=== PATIENT | female | born 1940 | race Caucasian/White ===

== ENCOUNTER → 2017-01-26 | Day surgery (SDC) | payer BC ==
[~2017-01-26] VITALS: Ht 160 cm; Wt 77.3 kg
[~2017-01-26] MED LIST: ACET325T96 PO; ADVIN50050 INH; ALBU1AER9 INH; GLUCOSAMINE PO; IBUP-103 PO; LOSA50TA6 PO; MOME50SP5; MULT-506 PO; OMEG10007 PO; POLYSOL OPL; PRLSR20 PO; SIMV20TA2 PO; gummy fiber PO
[2017-01-26 12:01] VITALS: Ht 160 cm; Wt 77.3 kg
[2017-01-26 12:16] VITALS: TEMP 36.8
--- NOTE | 2017-01-26 12:50 | Endo History and Physical ---
History & Physical Date of Service: Jan 26, 2017. Chief Complaint: HISTORY OF POLYPS Referring Physician: DR. GERMAIN History of Present Illness 76 yo CF who presents for colonoscopy secondary to history of polyps. Past Medical History Arthritis, Asthma, Reflux, High Cholesterol Past Surgical History Hx Cardiac Surgery: No Hx Internal Defibrillator: No Hx Pacemaker: No Hx Abdominal Surgery: No Hx of Implantable Prosthesis: No Hx Post-Op Nausea and Vomiting: No Hx Cancer Surgery: No Hx Thoracic Surgery: No Hx Orthopedic: Yes (RT FOOT SURGERY X4) Hx Urinary Tract Surgery: No Family History Colon CA, Polyp Social History Smoking Status: Never Smoker Hx Substance Use: No Hx Alcohol Use: Yes (QUIT ) Allergies Coded Allergies: Adhesives (Verified Allergy, Unknown, REDNESS, RASH, 01/26/17) Amoxicillin (Unverified Allergy, Unknown, PT UNSURE REACTION, 01/26/17) SON QUEEN RN PT HAS NO ALLERGY TO PCN. 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 DENTAL WORK (12/12/15) Clavulanic Acid (Unverified Allergy, Unknown, PT UNSURE REACTION, 01/26/17) Uncoded Allergies: Perfumes (Allergy, Unknown, SOB, 10/21/15) Current Medications Reported Home Medications Medications Dose Route/Sig Max Daily Dose Days Date Category Cozaar (Losartan Potassium) 50 Mg Tab 50 Mg PO QAM 01/14/17 Reported Advil (Ibuprofen) 200 Mg Tab 400 Mg PO BID 10/21/15 Reported Refresh (Polyvinyl Alcohol-Povidone (Op) 1 Juma Juma 1 Drop OPL QAM 10/21/15 Reported [Glucosamine] 2 Tab PO QAM 10/21/15 Reported Tylenol (Acetaminophen) 325 Mg Tab 650 Mg PO BID 10/21/15 Reported Proair Hfa (Albuterol) Aers 2 Puffs INH Q4H PRN 10/21/15 Reported [gummy fiber] 1 Tab PO QAM 07/18/14 Reported [place]-3 (Fish Oil) 1 Ea Cap 2 Tab PO QAM 07/18/14 Reported Zocor (Simvastatin) 20 Mg Tab 20 Mg PO QPM 06/24/14 Reported Prilosec (Omeprazole) 20 Mg Capcr 20 Mg PO QPM 06/24/14 Reported Nasonex (Mometasone Furoate) [place] 1 [place] NA BID 9/8/14 Reported Multivitamin (Multivitamins) Tab 2 Tab PO QAM 06/24/14 Reported Advair Diskus 500-50 Mcg/Dose (Fluticasone Prop/Salmeterol) 14 Puff/1 Inhaler Aerp 1 Puff INH BID 06/24/14 Reported Vital Signs Weight (Kilograms): 77.27 Height (Feet): 5 Height (Inches): 3 Date Time Temp Pulse Resp B/P Pulse Ox O2 Delivery O2 Flow Rate FiO2 01/26/17 12:16 36.8 90 20 168/97 95 Room Air Physical Exam General Appearance: WD/WN, no apparent distress Respiratory/Chest: Auscultation: breath sounds normal Cardiovascular: Heart Auscultation: RRR Abdomen: Bowel Sounds: normal Inspection & Palpation: soft, non-distended, no tenderness, guarding & rebound Assessment and Plan Assessment: 76 yo CF who presents for colonoscopy secondary to history of polyps. Plan: Proceed with colonoscopy.
--- NOTE | 2017-01-26 13:11 | Discharge Instructions ---
Endoscopy Patient Instructions Date / Procedure(s) Performed Jan 26, 2017. Colonoscopy Allergy Information Coded Allergies: Adhesives (Verified Allergy, Unknown, REDNESS, RASH, 01/26/17) Amoxicillin (Unverified Allergy, Unknown, PT UNSURE REACTION, 01/26/17) SON QUEEN RN PT HAS NO ALLERGY TO PCN. 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 DENTAL WORK (12/12/15) Clavulanic Acid (Unverified Allergy, Unknown, PT UNSURE REACTION, 01/26/17) Uncoded Allergies: Perfumes (Allergy, Unknown, SOB, 10/21/15) Discharge Date / Findings Jan 26, 2017. Colon polyp Diverticulosis Internal hemorrhoids Medication Instructions Stopped Medication(s): ONLY INHALERS AND BLOOD PRESSURE TODAY OK to resume all medications today as prescribed Reported Home Medications Medications Dose Route/Sig Max Daily Dose Days Date Category Cozaar (Losartan Potassium) 50 Mg Tab 50 Mg PO QAM 01/14/17 Reported Advil (Ibuprofen) 200 Mg Tab 400 Mg PO BID 10/21/15 Reported Refresh (Polyvinyl Alcohol-Povidone (Op) 1 Juma Juma 1 Drop OPL QAM 10/21/15 Reported [Glucosamine] 2 Tab PO QAM 10/21/15 Reported Tylenol (Acetaminophen) 325 Mg Tab 650 Mg PO BID 10/21/15 Reported Proair Hfa (Albuterol) Aers 2 Puffs INH Q4H PRN 10/21/15 Reported [gummy fiber] 1 Tab PO QAM 07/18/14 Reported [place]-3 (Fish Oil) 1 Ea Cap 2 Tab PO QAM 07/18/14 Reported Zocor (Simvastatin) 20 Mg Tab 20 Mg PO QPM 06/24/14 Reported Prilosec (Omeprazole) 20 Mg Capcr 20 Mg PO QPM 06/24/14 Reported Nasonex (Mometasone Furoate) [place] 1 [place]au NA BID 06/24/14 Reported Multivitamin (Multivitamins) Tab 2 Tab PO QAM 06/24/14 Reported Advair Diskus 500-50 Mcg/Dose (Fluticasone Prop/Salmeterol) 14 Puff/1 Inhaler Aerp 1 Puff INH BID 06/24/14 Reported Provider Instructions Activity Restrictions - No exercising or heavy lifting for 24 hours. - Do not drink alcohol the day of the procedure. - Do not drive a car or operate machinery until the day after the procedure. - Do not make any important decisions or sign important papers in 24 hours after the procedure. Following Day: - Return to full activity which may include returning to work/school. Diet Start your diet with liquids and light foods (jello, soup, juice, toast). Then eat your usual diet if not nauseated. Treatment For Common After Affects For mild abdominal pain, bloating, or excessive gas: - Rest - Eat lightly - Lie on right side Follow-Up Information Follow-up with DR. GERMAIN as scheduled Anesthesia Information What You Should Know You have had a procedure that required some medicine to reduce anxiety and discomfort. This treatment is called moderate sedation. After receiving the treatment, you may be sleepy, but you will be able to breathe on your own. The effects of the treatment may last for several hours. Follow these instructions along with Activity/Diet recommendations noted above: * Do NOT do anything where dizziness or clumsiness would be dangerous. * Rest quietly at home today, then you can be up and about tomorrow. * Have a responsible person stay with you the rest of today. * You may have had an I.V. today. If so, you may take the dressing off later today. Recommendations Call your doctor if: * Trouble breathing * Continuous vomiting for more than 24 hours * Temperature above 101 degrees * Severe abdominal pain or bloating * Pain not relieved by pain medicine ordered * There is increased drainage or redness from any incision * A large amount of rectal bleeding greater than 2-3 tablespoons. (If you had a polyp/s removed or have hemorrhoids, a small amount of blood - from the rectum is to be expected.) * You have any unanswered questions or concerns. IN THE EVENT OF A SERIOUS EMERGENCY, GO TO THE NEAREST EMERGENCY ROOM Your discharge instructions were prepared by provider Dave Cool. Patient Instructions Signature Page Sindy Persaud Patient (or Guardian) Signature/Date: I have read and understand the instructions given to me by my caregivers. Caregiver/RN/Doctor Signature/Date: The above-named patient and/or guardian has received patient instructions on this date. + Original Patient Signature Page (only) stays with chart. Please make copy for patient.
--- NOTE | 2017-01-26 13:15 | GI REPORT ---
Procedure Date: 01/26/2017 12:28 PM Procedure: Colonoscopy Indications: High risk colon cancer surveillance: Personal history of colonic polyps Medicines: Monitored Anesthesia Care Complications: No immediate complications. Estimated Blood Loss: Estimated blood loss: none. Procedure: Pre-Anesthesia Assessment: - Prior to the procedure, a History and Physical was performed, and patient medications and allergies were reviewed. The patient's tolerance of previous anesthesia was also reviewed. The risks and benefits of the procedure and the sedation options and risks were discussed with the patient. All questions were answered, and informed consent was obtained. Prior Anticoagulants: The patient has taken no previous anticoagulant or antiplatelet agents. ASA Grade Assessment: II - A patient with mild systemic disease. After reviewing the risks and benefits, the patient was deemed in satisfactory condition to undergo the procedure. After I obtained informed consent, the scope was passed under direct vision. Throughout the procedure, the patient's blood pressure, pulse, and oxygen saturations were monitored continuously. The scope was introduced through the anus and advanced to the terminal ileum. The colonoscopy was performed without difficulty. The patient tolerated the procedure well. The quality of the bowel preparation was good. The terminal ileum, ileocecal valve, appendiceal orifice, and rectum were photographed. Findings: A 5 mm polyp was found in the ascending colon. The polyp was sessile. The polyp was removed with a hot snare. Resection and retrieval were complete. Scattered small-mouthed diverticula were found in the entire colon. Non-bleeding internal hemorrhoids were found during retroflexion. The hemorrhoids were small. Impression: - One 5 mm polyp in the ascending colon, removed with a hot snare. Resected and retrieved. - Diverticulosis in the entire examined colon. - Non-bleeding internal hemorrhoids. Recommendation: - Resume previous diet. - Continue present medications. - Repeat colonoscopy for surveillance based on pathology results. - Return to primary care physician as previously scheduled. Dave Cool, 01/26/2017 1:14:39 PM This report has been signed electronically. Note Initiated On: 01/26/2017 12:28 PM I attest to the content of the Intraoperative Record and orders documented therein, exceptions below
[2017-01-26 13:47] VITALS: BP 165/67; PULSE 83; O2SAT 96
--- NOTE | 2017-01-26 14:55 | Anesthesiology Progress Note ---
Anesthesia Post Op Note Date & Time Jan 26, 2017 at 14:54 Vital Signs Pain Intensity: 0 Vital Signs Past 12 Hours Date Time Temp Pulse Resp B/P Pulse Ox O2 Delivery O2 Flow Rate FiO2 01/26/17 13:47 83 20 165/67 96 Room Air 01/26/17 13:33 83 20 174/88 96 Room Air 01/26/17 13:18 92 20 143/75 96 Room Air 01/26/17 12:16 36.8 90 20 168/97 95 Room Air Notes Mental Status: alert / awake / arousable, participated in evaluation Pt Amnestic to Procedure: Yes Nausea / Vomiting: adequately controlled Pain: adequately controlled Airway Patency, RR, SpO2: stable & adequate BP & HR: stable & adequate Hydration State: stable & adequate Anesthetic Complications: no major complications apparent
== END | disposition home or self-care (01) ==
LOC: C.GI 11:47
PROVIDERS: ATTEND Internal Medicine
DX: Z12.11 Encounter for screening for malignant neoplasm of colon (principal); D12.2 Benign neoplasm of ascending colon; K57.30 Diverticulosis of large intestine without perforation or abscess without bleeding; K64.8 Other hemorrhoids; M19.90 Unspecified osteoarthritis, unspecified site; J45.909 Unspecified asthma, uncomplicated; K21.9 Gastro-esophageal reflux disease without esophagitis; E78.00 Pure hypercholesterolemia, unspecified; Z86.010 Personal history of colon polyps; Z87.891 Personal history of nicotine dependence; Z80.0 Family history of malignant neoplasm of digestive organs

== ENCOUNTER → 2017-02-14 | Outpatient (CLI) | payer BC ==
[2017-02-14 09:42] LABS: BASO % 1.4 %; BASO ABS # 0.09 K/uL (0-0.2); COMPLETE YES; EOS % 20.8 %; IG% 0.3 %; LYMPH % 30.5 %; LYMPH ABS # 2.01 K/uL (1.2-3.4); MEAN CELL VOLUME 90.3 fL (80-100); MEAN CORPUSCULAR HEMOGLOBIN 29.5 pg (25-34); MEAN CORPUSCULAR HGB CONC 32.6 g/dl (32-36); MEAN PLATELET VOLUME 9.6 fL (7.4-10.4); MONO % 8.3 %; NEUT % 38.7 %; PLATELET COUNT 236 K/uL (130-400); RED BLOOD COUNT 4.65 M/uL (4.2-5.4); WHITE BLOOD COUNT 6.59 K/uL (4.8-10.8)
[2017-02-14 09:56] LABS: ALT/SGPT 32 U/L (12-78); AST/SGOT 22 U/L (15-37); BLOOD UREA NITROGEN 16 mg/dl (7-18); BUN/CREATININE RATIO 21.7 (10-20); CARBON DIOXIDE 27 mmol/L (21-32); CHLORIDE 108 mmol/L (98-107); CREATININE 0.74 mg/dl (0.60-1.20); GLUCOSE 92 mg/dl (70-99); POTASSIUM 4.2 mmol/L (3.5-5.1); SODIUM 142 mmol/L (136-145)
[2017-02-14 10:02] LABS: ESTIMATED AVERAGE GLUCOSE 117 mg/dl; HA1C FLAG Normal (Normal)
[2017-02-14 10:07] LABS: ALB/GLOB RATIO 1.3 (0.9-2); ALKALINE PHOSPHATASE 110 U/L (45-117); CHOLESTEROL 169 mg/dl (0-200); HDL CHOLESTEROL 85 mg/dl; LDL CHOLESTEROL CALCULATED 68 mg/dl; TRIGLYCERIDES 78 mg/dl (0-150); VERY LOW DENSITY LIPOPROT CALC 16 mg/dl
== END | disposition home or self-care (01) ==
LOC: C.LAB1850 08:24
PROVIDERS: ATTEND Internal Medicine Pulmonary Disease
DX: E78.5 Hyperlipidemia, unspecified (principal); R73.9 Hyperglycemia, unspecified; I10 Essential (primary) hypertension

== ENCOUNTER → 2017-10-13 | Outpatient (CLI) | payer BC ==
--- NOTE | 2017-10-13 13:46 | MAMMOGRAPHY REPORT ---
BILATERAL DIGITAL SCREENING MAMMOGRAM WITH CAD: 10/13/2017 CLINICAL HISTORY: Routine screening. The patient has no current complaints. TECHNIQUE: Current study was also evaluated with a Computer Aided Detection (CAD) system. Bilateral CC and MLO views were obtained. COMPARISON: Comparison is made to exams dated: 10/12/2016 mammogram, 10/08/2015 mammogram, 07/15/2015 ultrasound, 10/07/2014 mammogram, 10/04/2013 mammogram, and 10/03/2012 mammogram - [facility]. BREAST COMPOSITION: The tissue of both breasts is almost entirely fatty. FINDINGS: No suspicious masses, calcifications, or areas of architectural distortion are noted in ei ther breast. There has been no significant interval change compared to prior exams. Bilateral benign -appearing calcifications are not significantly changed. IMPRESSION: ACR BI-RADS CATEGORY 2: BENIGN There is no mammographic evidence of malignancy. A 1 year screening mammogram is recommended. The pa tient will receive written notification of the results. Approximately 10% of breast cancers are not detected with mammography. A negative mammographic report should not delay biopsy if a clinically suggestive mass is present. Breanna Johnson M.D. /:10/13/2017 12:17:59 Floor Installer: Sis DAVALOS(Jesus)(Delaney), [facility] letter sent: Normal 1/2 BI-RADS Code: ACR BI-RADS Category 2: Benign
== END | disposition home or self-care (01) ==
LOC: C.MAMM 10:00
PROVIDERS: ATTEND Internal Medicine Pulmonary Disease
DX: Z12.31 Encounter for screening mammogram for malignant neoplasm of breast (principal)

== ENCOUNTER → 2018-02-06 | Outpatient (CLI) | payer BC ==
[~2018-02-06] MED LIST changes: +ACET-1693 PO; -ACET325T96 PO
[2018-02-06 09:39] LABS: BASO % 0.7 %; BASO ABS # 0.07 K/uL (0-0.2); EOS % 10.5 %; EOS ABS # 1.06 K/uL (0-0.5); HEMATOCRIT 41.3 % (37-47); HEMOGLOBIN 13.5 g/dL (12.0-16.0); IG# 0.03 K/uL (0.00-0.02); LYMPH % 19.3 %; LYMPH ABS # 1.95 K/uL (1.2-3.4); MEAN CELL VOLUME 88.6 fL (80-100); MEAN CORPUSCULAR HGB CONC 32.7 g/dl (32-36); MEAN PLATELET VOLUME 9.4 fL (7.4-10.4); MONO % 9.2 %; MONO ABS # 0.93 K/uL (0.11-0.59); NEUT ABS # 6.06 K/uL (1.4-6.5); PLATELET COUNT 282 K/uL (130-400); RED CELL DISTRIBUTION WIDTH CV 14.3 % (11.5-14.5); RED CELL DISTRIBUTION WIDTH SD 46.3 fL (36.4-46.3)
[2018-02-06 10:07] LABS: ALT/SGPT 23 U/L (12-78); AST/SGOT 18 U/L (15-37); BLOOD UREA NITROGEN 22 mg/dl (7-18); CALCIUM 9.3 mg/dl (8.5-10.1); CARBON DIOXIDE 27 mmol/L (21-32); CREATININE 0.79 mg/dl (0.60-1.20); GLUCOSE 92 mg/dl (70-99); POTASSIUM 4.1 mmol/L (3.5-5.1); SODIUM 140 mmol/L (136-145)
[2018-02-06 10:10] LABS: ALKALINE PHOSPHATASE 123 U/L (45-117); CHOLESTEROL 172 mg/dl (0-200); LDL CHOLESTEROL CALCULATED 79 mg/dl; TOTAL PROTEIN 7.2 gm/dl (6.4-8.2)
== END | disposition home or self-care (01) ==
LOC: C.LAB1850 08:20
PROVIDERS: ATTEND Internal Medicine Pulmonary Disease
DX: J45.909 Unspecified asthma, uncomplicated (principal); E78.5 Hyperlipidemia, unspecified; J32.9 Chronic sinusitis, unspecified; R73.9 Hyperglycemia, unspecified; I10 Essential (primary) hypertension

== ENCOUNTER 2024-10-16 15:19 | Inpatient (IN) ==
--- NOTE | 2024-10-16 15:29 | ED Triage Note ---
Date of Service October 16, 2024 Provider in Triage Author: Aishwarya Simpson History of Present Illness This patient was briefly evaluated while in triage. An abbreviated physical exam was performed. 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 Initial orders for labs and / or imaging were placed and patient was placed in the waiting area until a bed is available. Please see further documentation for the full ED course.
[2024-10-16 16:08] LABS: Basophils # (auto) 0.11 K/uL (0.00-0.20); Basophils % (auto) 0.7 %; Eosinophils # (auto) 1.03 K/uL (0.00-0.50); Eosinophils % (auto) 6.9 %; Hematocrit (blood only) 37.8 % (37.0-47.0); Hemoglobin 12.6 g/dl (12.0-16.0); Immature Granulocytes # (auto) 0.38 K/uL (0.01-0.20); Immature Granulocytes % (auto) 2.5 %; Lymphocytes # (auto) 1.28 K/uL (1.20-3.40); Lymphocytes % (auto) 8.6 %; Mean Corpuscular Hemoglobin 28.6 pg (25.0-34.0); Mean Corpuscular Hgb Conc 33.3 g/dL (32.0-36.0); Mean Corpuscular Volume 85.7 fL (80.0-100.0); Mean Platelet Volume 8.9 fL (9.4-12.4); Monocytes # (auto) 0.71 K/uL (0.11-0.59); Monocytes % (auto) 4.8 %; Neutrophils # (auto) 11.41 K/uL (1.40-6.50); Neutrophils % (auto) 76.5 %; Platelet Count 282 K/uL (130-400); RDW Coefficient of Variation 13.8 % (11.5-14.5); RDW Standard Deviation 43.2 fL (36.4-46.3); Red Blood Count 4.41 M/uL (4.20-5.40); White Blood Count 14.92 K/ul (4.8-10.8)
--- NOTE | 2024-10-16 16:17 | XRay Report ---
EXAM: Radiographs of the Chest 2 Views INDICATION: Dyspnea. Shortness of breath for 1 week. TECHNIQUE: Frontal and lateral views of the chest. COMPARISON: 08/17/2024 FINDINGS: Lungs and pleural spaces: New multifocal groundglass density in the right lung. Stable basilar scarring and right diaphragmatic elevation/eventration. Left lung is clear. No pleural effusion or pneumothorax. Heart: Stable large cardiac shadow. Mediastinum: Normal contour. Bones/joints: No fracture, erosion or dislocation. Vasculature: Stable ectatic aorta. IMPRESSION: New multifocal groundglass infiltrates in the right lung most concerning for pneumonia including viral etiologies. ACT 112: Negative or not required by law. Electronically signed by Merle Santos 10-16-2024 4:17 PM
[2024-10-16 16:37] LABS: Albumin Globulin Ratio 0.9 (0.9-2); Albumin Level 3.2 gm/dl (3.4-5.0); BUN Creatinine Ratio 17.1 (10-20); Bilirubin,Total 0.8 mg/dl (0.2-1.0); Calcium 8.4 mg/dl (8.6-10.3); Creatinine Clr Calc Pharmacy 49.7 ml/min; Globulin 3.5 gm/dl (2.5-4.0); Potassium 3.4 mmol/L (3.5-5.1); Total Protein 6.7 gm/dl (6.0-8.3)
[2024-10-16 16:43] LABS: Troponin I High Sensitivity 29.2 pg/ml (0-14)
[2024-10-16 16:50] LABS: Adenovirus PCR Not Detected (NotDetected); Bordetella parapertussis PCR Not Detected (NotDetected); Bordetella pertussis PCR Not Detected (NotDetected); Chlamydia pneumoniae PCR Not Detected (NotDetected); Coronavirus 229E PCR Not Detected (NotDetected); Coronavirus CoV-2 (COVID19)PCR Not Detected (NotDetected); Coronavirus HKU1 PCR Not Detected (NotDetected); Coronavirus NL63 PCR Not Detected (NotDetected); Coronavirus OC43PCR Not Detected (NotDetected); Human Metapneumovirus PCR Not Detected (NotDetected); Influenza A PCR Not Detected (NotDetected); Influenza B PCR Not Detected (NotDetected); Mycoplasma pneumoniae PCR Not Detected (NotDetected); Parainfluenza Virus 1 PCR Not Detected (NotDetected); Parainfluenza Virus 2 PCR Not Detected (NotDetected); Parainfluenza Virus 3 PCR Not Detected (NotDetected); Parainfluenza Virus 4 PCR Not Detected (NotDetected); Respiratory Syncytial VirusPCR Not Detected (NotDetected); Rhinovirus/Enterovirus PCR Not Detected (NotDetected)
[2024-10-16] MEDS: ALBUT/IPRATROP 3MG/0.5MG NEB 3 ML VIAL NEB STA ×2 (17:00→17:11)
[2024-10-16] MEDS: methylPREDNISolone 125 MG/2 ML VIAL IV STA (17:03)
[2024-10-16] MEDS: SODIUM CHLORIDE 0.9% 1,000 ML IV ONE (17:08)
[2024-10-16] MEDS: cefTRIAXone SODIUM 2,000 MG/50 ML BAG IV STA (17:09)
--- NOTE | 2024-10-16 17:43 | History & Physical Report ---
Date of Service October 16, 2024 Assessment & Plan (1) Pneumonia: Plan: patient with fatigue, nonproductive cough, chills, shortness of breath with minimal exertion x 1 week CXR showing new multifocal ground glass infiltrates in the right lung was concerning for pneumonia including viral etiologies, tracheal deviation to right CT ordered on admission - multifocal bilateral lower and right upper lobe pneumonia with mild reactive mediastinal nodes and small right pleural effusion Biofire negative leukocytosis (WBC 14.92) with neutrophil predominance and left shift - likely elevated due to long-term steroid use Pro-Hal elevated 0.89 - started on Rocephin in ED; will transition to provide more anaerobic coverage with Zosyn + Azithromycin - MRSA swab ordered -> if positive add vanco - sputum cultures ordered - defer blood cultures as already had dose of Rocephin in ED - isolation precautions - Scheduled duonebs - [facility] prednisone use - Solu-Medrol 40 mg IV BID - incentive spirometry + flutter valve Hypoxia - 5L NC; wean O2 as tolerated (2) Asthma, persistent not controlled: 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 peripheral eosinophilia long-term prednisone use with Mg x 1 year, titrated down to 0.5 Mg for all of September last dose 10/16 CT chest showed confluent pleural-based component in right paraspinal upper lobe probable acute on chronic airway thickening Solu-Medrol IV and duonebs as above Continue home Wixela, Montelukast, Spiriva (3) Hypokalemia: Plan: 3.4 on admission -> 40 MeQ PO MG 2.0 (4) Elevated troponin: Plan: 29.2; likely secondary to demand EKG showing NSR denies cp trend trop Plan peripheral eosinophilia - Eosinophil count mildly elevated, 1.03; Fasenra Q56 days allergic rhinitis - continue montelukast, ipratropium, mometasone nasal spray, and cetirizine hypersomnia - stable elevated alk phos - stable, 261 VTE ppx: SCDs and ambulation Diet: regular Dispo: med/tele Admission and Anticipated Discharge Date Admission Date: 10/16/24 History of Present Illness Chief Complaint: dyspnea Primary Care Provider: Renetta Blancas DO Patient is an 84-year-old female with past medical history of persistent uncontrolled asthma, peripheral eosinophilia, hypersomnia, Polymyalgia rheumatica. She presents after being sent by her PCP. stated that she started with flulike symptoms on 10/09. She started with fatigue, chills, worsening shortness of breath. She has a cough and shortness of breath at baseline but it is acutely worsened. She denies any sputum production. She has had no sick contacts that she knows of. She did take her temperature at home and it was 97.7. She has been using her home inhalers regularly. She was on long-term prednisone for 1 year, she was tapered down to 0.5 Mg in September and just took her last dose today. Patient denies headache, dizziness, lightheadedness, sputum production, chest pain, abdominal pain, nausea, vomiting, edema, numbness, tingling. Allergies Allergy/AdvReac Type Severity Reaction Status Date / Time adhesive Allergy Unknown REDNESS, Verified 10/16/24 17:51 RASH amoxicillin Allergy Unknown PT UNSURE Verified 10/16/24 17:51 REACTION, ? itchy clavulanic acid Allergy Unknown PT UNSURE Verified 10/16/24 17:51 REACTION, ? itchy Perfumes Allergy Severe SOB Uncoded 10/16/24 17:51 DUST Allergy Unknown Sneezing Uncoded 10/16/24 17:51 Home Medications Medication Instructions Recorded Confirmed Type calcium 500 mg (as 2 tab PO QAM 08/05/20 10/16/24 History carbonate)-vitamin D3 5 mcg (200 unit) tablet (Calcium 500 + D) cetirizine 10 mg tablet 10 mg PO DAILY 01/14/23 10/16/24 History zoledronic acid 5 mg/100 mL in 1 ea IV .UD 09/30/23 10/16/24 History mannitol 5 %-water intravenous piggybck (Reclast) fluticasone 500 mcg-salmeterol 50 1 inh inhalation BID #180 ea 07/24/24 10/16/24 Rx mcg/dose blistr powdr for inhalation (Wixela Inhub) ipratropium bromide 21 mcg (0.03 2 spray intranasal DAILY #90 mL 07/24/24 10/16/24 Rx %) nasal spray losartan 50 mg tablet (Cozaar) 50 mg PO QAM #90 tabs 07/24/24 10/16/24 Rx mometasone 50 mcg/actuation nasal 1 spray intranasal BID #51 grams 07/24/24 10/16/24 Rx spray simvastatin 20 mg tablet 20 mg PO QPM #90 tabs 07/24/24 10/16/24 Rx albuterol sulfate 90 mcg/actuation 2 puff inhalation Q4H PRN 08/17/24 10/16/24 Rx aerosol inhaler shortness of breath or wheezing #3 Inhalers tiotropium bromide 1.25 2 puff inhalation DAILY #3 Inhalers 09/10/24 10/16/24 Rx mcg/actuation mist for inhalation (Spiriva Respimat) montelukast 10 mg tablet 10 mg PO DAILY #90 tabs 09/11/24 10/16/24 Rx benralizumab 30 mg/mL subcutaneous 30 mg subcut .COMPLEX #1 mL 09/21/24 10/16/24 Rx syringe (Fasenra) omeprazole 20 mg capsule,delayed 20 mg PO QPM #90 caps 10/01/24 10/16/24 Rx release Past Med/Surg History Problem List (Updated 10/17/24 @ 11:16 by Jonathan Duran MD) Asthma exacerbation (Acute) Cough (Acute) Acute dyspnea (Acute) Pneumonia involving right lung (Acute) Elevated troponin (Acute) Acute hypoxemic respiratory failure (Acute) Elevated troponin Hypokalemia Pneumonia Asthma, persistent not controlled Allergic rhinitis with postnasal drip Hypersomnia Exertional shortness of breath Peripheral eosinophilia Asthmatic bronchitis Osteoporosis Shoulder pain FPC (current) use of systemic steroids Polymyalgia rheumatica Chronic rhinitis Chronic sinusitis, unspecified Meningioma Right knee DJD (Acute 07/18/14) GERD (gastroesophageal reflux disease) controlled Hyperglycemia (Acute) Selective deficiency of IgG Nasal polyposis Allergic conjunctivitis and rhinitis Hyperlipidemia Hypertension Family history of coronary arteriosclerosis Impacted cerumen of left ear Sensorineural hearing loss (SNHL) of both ears Poorer WRS in left ear Colon polyp (~01/13/22) Radial scar of breast Numerous skin moles Bilateral cataracts Asthma, moderate persistent Alkaline phosphatase elevation Elevated serum GGT level Medical History History of colon polyps Family history of reaction to anesthesia SOME MEMBERS OF FAMILY - N/V , DIZZINESS ? - UNKNOWN FURTHER DETAILS History of colon polyps ? PT NOT SURE - UPCOMING COLONOSCOPY JANUARY 2022 Back pain ACHE WITH EXTENDED STANDING OR WALKING PERIODS Hyperlipidemia HTN (hypertension) Asthma well controlled LBBB (left bundle branch block) chronic dating back to 2013 DSE PT NOT SURE Surgical History H/O right breast biopsy H/O right inguinal hernia repair (12/15/21) Needle localization right breast biopsy. Dr. Horton 12/15/2021 H/O wrist surgery 02/2020 Hx of tonsillectomy Hx of breast lump removal 1985 left History of nasal surgery B/L endoscopic sinus surgery: 12/12/15: Grade view 1, MAC#3, ETT 7.0 at [facility] History of right knee joint replacement History of bowel resection PERFORATED BOWEL FROM COLONOSCOPY 08/1996 History of colonoscopy (02/2022) Family History Brother Family history of diabetes mellitus Heart disease Asthma Diabetes Mother Asthma Father Colon cancer Sister Heart disease Uncle Colon cancer Prostate cancer Grandmother (Paternal) Breast cancer Family/Other Breast cancer Other Allergies Hearing loss Hypertension No family history of bleeding disorder Denies family history of Ovarian cancer Myocardial infarction Cancer Stroke Social History Smoking Status: Never smoker Second Hand Exposure: No; Do You Dip or Chew Tobacco: No; Hx Alcohol Use: No Hx Substance Use: No Preferred Language: Slovak Communication Ability: Effective Visual Impairment: No Limitations Hearing Ability: Hard of Hearing Certified Medical Coding Specialist Required: No Beliefs That Will Affect Care: None marital status: Current Living Situation: Alone current occupational status: retired Feels Safe at Home: Yes Childhood Exposure to Second-Hand Smoke: Yes Dental Care, Regularly: Yes Physical Activity Frequency: 1-2 Times per Week Seatbelt Use: always Sunscreen Use: No Assistive Devices: Cane and Walker Review of Systems Review of Systems: see HPI Physical Exam Physical Exam: The patient is awake, alert and oriented 3, well developed and well nourished, normocephalic and atraumatic, in no acute distress. Non-toxic appearing. HEENT- EOMI, mucous membranes moist. Hearing grossly intact. Heart-normal S1 and S2. No murmurs, rubs or gallops. Lungs-wheezes RL, no respiratory distress, no accessory muscle use. Abdomen-normal bowel sounds and soft. No ascites noted. Non-tender. Extremities- no clubbing, cyanosis, or edema. Rheumatologic-normal range of motion. Psychiatric-normal affect. Results & Data Results & Data Vital Signs (Past 12 Hours) Vital Signs Temp Pulse Resp BP Pulse Ox O2 Del Method O2 Flow Rate 10/16/24 17:24 92 H 22 172/89 H 98 Nasal Cannula 5 10/16/24 16:59 90 10/16/24 16:43 Nasal Cannula 5 10/16/24 16:43 98 Nasal Cannula 5 10/16/24 15:28 36.4 C L 81 20 183/95 H 88 L Room Air Laboratory Results Reviewed CBC, CMP, troponin, magnesium, bio fire Diagnostic Findings reviewed CXR Medications Administered ED: 1L NSS, duoneb x2, Rocephin, Solu-Medrol 125 ECG Additional Comments: NSR Code Status & VTE Plan Code Status full VTE Prophylaxis Plan VTE Prophylaxis will be ordered: Yes Supervising Physician Co-Signing Physician Notes Attending addendum: I have physically seen this patient, have supervised the AGUEDA's medical activities, and agree with the H&P unless as otherwise noted. Assessment and Plan: #Pneumonia involving right lung- Symptoms of fatigue, nonproductive cough, chills and shortness of breath over the past week Chest x-ray with new multifocal groundglass infiltrates in the right lung, with tracheal deviation to the right Ordered CT scan chest, which showed multifocal bilateral lower and right upper lobe pneumonia with mild reactive mediastinal nodes and small right pleural effusion BioFire testing negative Patient initially placed on ceftriaxone in the ED Changing to Zosyn 4.5 g IV every 8 hours, and azithromycin 500 mg daily MRSA swab ordered and pending DuoNebs every 2 hours as needed Holding oral prednisone Placed on methylprednisolone 40 mg IV twice daily Incentive spirometry and flutter valve Nasal cannula oxygen, titrate to keep pulse ox around 92% #History of asthma with persistent eosinophilia Had had her prednisone tapered to 1 mg over the past year Workup in the outpatient setting by pulmonology the need for Biologics CT of chest notes confluent pleural-based, pulmonary and right paraspinal upper lobe probable acute on chronic airway thickening Continue home Wixela, montelukast and Spiriva Follow-up with pulmonology Dr. Nuñez, Biologics in the outpatient setting #GERD- Continue omeprazole/pantoprazole, important to have adequate control #Hyperlipidemia- Continue simvastatin Remaining orders and notations as noted PG Care Time/CCT Total # of Minutes Spent Total Time Spent with Patient: Total time spent is greater than 50% in coordination of care (as documented) at patient's floor/unit and/or counseling patient: Coding Level of Care Code 73257 INT INP/OBS CARE 3/75MIN Diagnoses Pneumonia J18.9 Asthma, persistent not controlled J45.998 Hypokalemia E87.6 Elevated troponin R79.89
[2024-10-16] MEDS ORDERED: PIPERACILLIN/TAZOBACTAM 4.5 GM/100 ML BAG IV SCH (18:30)
--- NOTE | 2024-10-16 18:42 | CT Scan Report ---
EXAM: CT Chest Without Intravenous Contrast INDICATION: Pneumonia. Possible adenopathy. TECHNIQUE: Axial computed tomography images of the chest without intravenous contrast. Sagittal and coronal reformatted images were created and reviewed. This CT exam was performed using one or more of the following dose reduction techniques: automated exposure control, adjustment of the mA and/or kV according to patient size, and/or use of iterative reconstruction technique. COMPARISON: Chest x-ray the same day FINDINGS: Limitations: None. Lungs and pleural spaces: There is a small layering right pleural effusion. No pneumothorax. There is moderate groundglass and consolidative infiltrate in the bilateral lower and right upper lobes. Confluent pleural-based component in the right paraspinal upper lobe measures approximately 3.0 x 2.4 x 4.7 cm. There is probable acute on chronic airway thickening. Heart: Mild cardiomegaly. No pericardial effusion. Dense coronary calcification noted. Thyroid: No abnormality noted. Bones/joints: Degenerative changes noted throughout the spine. No acute osseous abnormality seen. Soft tissues: No significant abnormality noted. Vasculature: No abnormality noted. No thoracic aortic aneurysm. Lymph nodes: There are few reactive subcentimeter paratracheal and precarinal nodes. No large hilar node is identified in the absence of IV contrast. IMPRESSION: Multifocal bilateral lower and right upper lobe pneumonia with mild reactive mediastinal nodes and small right pleural effusion. ACT 112: Negative or not required by law. Electronically signed by Merle Santos 10-16-2024 6:38 PM
[2024-10-16] MEDS: POTASSIUM CHLORIDE CRTAB 20 MEQ TABCR PO STA (19:00)
--- NOTE | 2024-10-16 19:25 | Emergency Department Note ---
Impression & Plan Acute hypoxemic respiratory failure, Elevated troponin, Pneumonia involving right lung, Acute dyspnea, Cough, Asthma exacerbation ED Provider Note NAME: PEE PATEL AGE: 84 SEX: F : 1940 ARRIVES VIA: Walk-In INFORMANT: Patient, niece ED PROVIDER(S): Jonathan Duran MD CHIEF COMPLAINT: Shortness of breath MEDICAL DECISION MAKING: Patient presents due to concern for shortness of breath and was noted to be hypoxemic. IV was established and blood work was obtained. Additional nebulizer treatments ordered along with IV steroids. Patient does have a white count of 14 was ordered antibiotics Rocephin and doxycycline. H&H platelet count are normal. Kidney function is unremarkable. Troponin of 29 but no active chest pain EKG without any changes. BioFire negative. Chest x-ray does show concern for right-sided pneumonia. Patient does feel improved after the treatments. I did speak the on-call hospital service after reevaluating the patient and discussing the recommendations with the patient the patient's niece at bedside. They are comfortable plan of care. Patient was admitted by Dr. Walls. Critical Care: I have personally spent 45 minutes of critical care time in direct management of this patient. This includes bedside care, interpretation of diagnostic studies, and testing, discussion with consultants, patient, and family members, and other require inpatient management activities. This 45 minutes is in excess of all separately billable procedures. Discussion w/ other healthcare providers: Dr. Walls inpatient medicine service Prior /Outside records reviewed: None Differential diagnosis: Reactive airway disease, pneumonia, pneumothorax, COPD, CHF, ACS, pulmonary embolism, musculoskeletal, GERD as well as other pathologies were considered. Diagnostics, as interpreted by me: ECG: Normal sinus rhythm, rate of 93, wide QRS prolonged QTc, left axis deviation (branch block pattern. No obvious scar Bosa criteria present. No significant change for comparison December 02, 2021. Cardiac monitoring: An order was placed for continuous cardiac monitoring. The monitor shows a rate of 88 with sinus rhythm. Patient was placed on pulse oximetry Medical decision rules: Curb 65 score Imaging studies: I informally interpreted the patient's chest x-ray does show concern for right- sided pneumonia with formal report to follow. HPI: Patient presents with niece at bedside due to concern for shortness of breath. The patient states that she developed symptoms on [place]. The patient has had a dry cough. The patient does have a known history of asthma. The patient has trialed medications at home but without significant improvement believes that this has gotten worse. The patient did get her seasonal flu shot as well as her other seasonal shots. Patient denies any chest pains. She does have shortness of breath at rest as well as with activity. No orthopnea or significant leg swelling per patient. Patient has had some chills but no fevers. No reported recent travel. PAST MEDICAL HISTORY: See Below PAST SURGICAL HISTORY: See Below SOCIAL HISTORY: See Below HOME MEDICATIONS: See Below ALLERGIES: See Below VITALS: See Below PHYSICAL EXAMINATION: GENERAL: NAD, non-toxic. Nasal cannula in place. EYE EXAM: Normal conjunctiva. PERRL, no anisocoria and EOM's grossly intact w/o pain. OROPHARYNX: Moist mucus membranes, grossly normal dentition. NECK: Trachea midline, no stridor. Supple, no nuchal rigidity, no adenopathy, non-tender. No signs of meningismus. FROM of the neck with good chin to chest and neck extension. LUNGS: Diminished breath sounds with wheezing throughout. Normal chest wall mechanics. HEART: NSR, no MRG. ABDOMEN: Abdomen soft, non-tender, no masses, no rebound or guarding. BACK: No CVA TTP. SKIN: No rashes and no bruising. UPPER EXTREMITIES: Upper extremities are grossly normal. LOWER EXTREMITIES: Grossly normal, no edema. Negative Homans' sign bilaterally. NEURO EXAM: A&O x3, cranial nerves II-XII grossly intact, normal speech, moves all 4 extremities. Past Med/Surg History Problem List (Updated 10/17/24 @ 11:16 by Jonathan Duran MD) Asthma exacerbation (Acute) Cough (Acute) Acute dyspnea (Acute) Pneumonia involving right lung (Acute) Elevated troponin (Acute) Acute hypoxemic respiratory failure (Acute) Elevated troponin Hypokalemia Pneumonia Asthma, persistent not controlled Allergic rhinitis with postnasal drip Hypersomnia Exertional shortness of breath Peripheral eosinophilia Asthmatic bronchitis Osteoporosis Shoulder pain senior care (current) use of systemic steroids Polymyalgia rheumatica Chronic rhinitis Chronic sinusitis, unspecified Meningioma Right knee DJD (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/14) GERD (gastroesophageal reflux disease) controlled Hyperglycemia (Acute) Selective deficiency of IgG Nasal polyposis Allergic conjunctivitis and rhinitis Hyperlipidemia Hypertension Family history of coronary arteriosclerosis Impacted cerumen of left ear Sensorineural hearing loss (SNHL) of both ears Poorer WRS in left ear Colon polyp (~01/13/22) Radial scar of breast Numerous skin moles Bilateral cataracts Asthma, moderate persistent Alkaline phosphatase elevation Elevated serum GGT level Medical History History of colon polyps Family history of reaction to anesthesia SOME MEMBERS OF FAMILY - N/V , DIZZINESS ? - UNKNOWN FURTHER DETAILS History of colon polyps ? PT NOT SURE - UPCOMING COLONOSCOPY JANUARY 2022 Back pain ACHE WITH EXTENDED STANDING OR WALKING PERIODS Hyperlipidemia HTN (hypertension) Asthma well controlled LBBB (left bundle branch block) chronic dating back to 2013 DSE PT NOT SURE Surgical History H/O right breast biopsy H/O right inguinal hernia repair (12/15/21) Needle localization right breast biopsy. Dr. Horton 12/15/2021 H/O wrist surgery 02/2020 Hx of tonsillectomy Hx of breast lump removal 1985 left History of nasal surgery B/L endoscopic sinus surgery: 12/12/15: Grade view 1, MAC#3, ETT 7.0 at [facility] History of right knee joint replacement History of bowel resection PERFORATED BOWEL FROM COLONOSCOPY 08/1996 History of colonoscopy (02/2022) Family History Brother Family history of diabetes mellitus Heart disease Asthma Diabetes Mother Asthma Father Colon cancer Sister Heart disease Uncle Colon cancer Prostate cancer Grandmother (Paternal) Breast cancer Family/Other Breast cancer Other Allergies Hearing loss Hypertension No family history of bleeding disorder Denies family history of Ovarian cancer Myocardial infarction Cancer Stroke Social History Smoking Status: Never smoker Second Hand Exposure: No; Do You Dip or Chew Tobacco: No; Hx Alcohol Use: No Hx Substance Use: No Preferred Language: Sierra Leonean Communication Ability: Effective Visual Impairment: No Limitations Hearing Ability: Hard 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 itchy clavulanic acid Allergy Unknown PT UNSURE Verified 10/16/24 17:51 REACTION, ? itchy Perfumes Allergy Severe SOB Uncoded 10/16/24 17:51 DUST Allergy Unknown Sneezing Uncoded 10/16/24 17:51 Home Meds Home Medications Medication Instructions Recorded Confirmed calcium 500 mg (as 2 tab PO QAM 08/05/20 10/16/24 carbonate)-vitamin D3 5 mcg (200 unit) tablet (Calcium 500 + D) cetirizine 10 mg tablet 10 mg PO DAILY 01/14/23 10/16/24 zoledronic acid 5 mg/100 mL in 1 ea IV .UD 09/30/23 10/16/24 mannitol 5 %-water intravenous piggybck (Reclast) Previous Rx's Medication Instructions Recorded fluticasone 500 mcg-salmeterol 50 1 inh inhalation BID #180 ea 07/24/24 mcg/dose blistr powdr for inhalation (Wixela Inhub) ipratropium bromide 21 mcg (0.03 2 spray intranasal DAILY #90 mL 07/24/24 %) nasal spray losartan 50 mg tablet (Cozaar) 50 mg PO QAM #90 tabs 07/24/24 mometasone 50 mcg/actuation nasal 1 spray intranasal BID #51 grams 07/24/24 spray simvastatin 20 mg tablet 20 mg PO QPM #90 tabs 07/24/24 albuterol sulfate 90 mcg/actuation 2 puff inhalation Q4H PRN 08/17/24 aerosol inhaler shortness of breath or wheezing #3 Inhalers tiotropium bromide 1.25 2 puff inhalation DAILY #3 Inhalers 09/10/24 mcg/actuation mist for inhalation (Spiriva Respimat) montelukast 10 mg tablet 10 mg PO DAILY #90 tabs 09/11/24 benralizumab 30 mg/mL subcutaneous 30 mg subcut .COMPLEX #1 mL 09/21/24 syringe (Fasenra) omeprazole 20 mg capsule,delayed 20 mg PO QPM #90 caps 10/01/24 release Results & Data (ED) Vital Signs Vital Signs - 24 hr 10/16/24 15:28 10/16/24 16:43 10/16/24 16:43 Temperature 36.4 C L Temperature Source Temporal Artery Scan Pulse Rate 81 Pulse Rate from SpO2 Sensor Pulse Rhythm Regular Pulse Strength Normal Respiratory Rate 20 Respiratory Effort / Characteristics Non-Labored Spontaneous Respiratory Depth Normal Respiratory Pattern Regular Blood Pressure 183/95 H Blood Pressure Mean 124 Blood Pressure Position Sitting Pulse Oximetry 88 L 98 Oxygen Delivery Method Room Air Nasal Cannula Nasal Cannula Oxygen Flow Rate 5 5 Sepsis Recent Fever Within 48 Hours No Sepsis New/Unexplained Change in Mental Status No Sepsis Action Taken by Nursing No Action Required 10/16/24 16:59 10/16/24 17:24 10/16/24 17:30 Temperature Temperature Source Pulse Rate 90 92 H Pulse Rate from SpO2 Sensor 95 H Pulse Rhythm Pulse Strength Respiratory Rate 22 Respiratory Effort / Characteristics Respiratory Depth Respiratory Pattern Blood Pressure 172/89 H 162/80 H Blood Pressure Mean 116 137 Blood Pressure Position Pulse Oximetry 98 Oxygen Delivery Method Nasal Cannula Oxygen Flow Rate 5 Sepsis Recent Fever Within 48 Hours Sepsis New/Unexplained Change in Mental Status Sepsis Action Taken by [facility] Medications Current Medication List: was personally reviewed by me Laboratory Data Attestation: I reviewed the patient's lab results. 10/17/24 06:29 10/17/24 06:29 Lab Results 10/16/24 10/16/24 Range/Units 15:44 17:49 WBC 14.92 H (4.8-10.8) K/ul RBC 4.41 (4.20-5.40) M/uL Hgb 12.6 (12.0-16.0) g/dl Hct 37.8 (37.0-47.0) % MCV 85.7 (80.0-100.0) fL MCH 28.6 (25.0-34.0) pg MCHC 33.3 (32.0-36.0) g/dL RDW Std Deviation 43.2 (36.4-46.3) fL RDW Coeff of Daren 13.8 (11.5-14.5) % Plt Count 282 (130-400) K/uL MPV 8.9 L (9.4-12.4) fL Immature Gran % (Auto) 2.5 % Neut % (Auto) 76.5 % Lymph % (Auto) 8.6 % [place] % (Auto) 4.8 % Eos % (Auto) 6.9 % Baso % (Auto) 0.7 % Neut # (Auto) 11.41 H (1.40-6.50) K/uL Lymph # (Auto) 1.28 (1.20-3.40) K/uL [place] # (Auto) 0.71 H (0.11-0.59) K/uL Eos # (Auto) 1.03 H (0.00-0.50) K/uL Baso # (Auto) 0.11 (0.00-0.20) K/uL Immature Gran # (Auto) 0.38 H (0.01-0.20) K/uL Sodium 134 L (136-145) mmol/L Potassium 3.4 L (3.5-5.1) mmol/L Chloride 102 (98-107) mmol/L Carbon Dioxide 22 (21-32) mmol/L Anion Gap 10 (3-11) BUN 14 (6-23) mg/dl Creatinine 0.82 (0.6-1.2) mg/dl Est Cr Clr Drug Dosing 49.7 ml/min eGFR 70.05 BUN/Creatinine Ratio 17.1 (10-20) Glucose 167 H (70-99(Fasting)) mg/dl Calcium 8.4 L (8.6-10.3) mg/dl Magnesium 2.0 (1.7-2.4) mg/dl Total Bilirubin 0.8 (0.2-1.0) mg/dl AST 36 (13-39) U/L ALT 32 (7-52) U/L Alkaline Phosphatase 261 H (34-104) U/L Troponin I High Sens 29.2 H 28.5 H (0-14) pg/ml Total Protein 6.7 (6.0-8.3) gm/dl Albumin 3.2 L (3.4-5.0) gm/dl Globulin 3.5 (2.5-4.0) gm/dl Albumin/Globulin Ratio 0.9 (0.9-2) Procalcitonin 0.89 H (0-0.5) ng/ml Adenovirus (PCR) Not Detected (NotDetected) B. pertussis DNA (PCR) Not Detected (NotDetected) B.parapertussis DNA PCR Not Detected (NotDetected) C. pneumoniae DNA (PCR) Not Detected (NotDetected) Coronavirus OC43 (PCR) Not Detected (NotDetected) Coronavirus HKU1 (PCR) Not Detected (NotDetected) Coronavirus 229E (PCR) Not Detected (NotDetected) SARS-CoV-2 (PCR) Not Detected (NotDetected) Coronavirus NL63 (PCR) Not Detected (NotDetected) Human Metapneumovir PCR Not Detected (NotDetected) Influenza Type A (PCR) Not Detected (NotDetected) Influenza Type B (PCR) Not Detected (NotDetected) M. pneumoniae (PCR) Not Detected (NotDetected) Parainfluenza 1 (PCR) Not Detected (NotDetected) Parainfluenza 2 (PCR) Not Detected (NotDetected) Parainfluenza 3 (PCR) Not Detected (NotDetected) Parainfluenza 4 (PCR) Not Detected (NotDetected) RSV (PCR) Not Detected (NotDetected) Entero/Rhino (PCR) Not Detected (NotDetected) Administered Medications Albuterol (Albut/Ipratrop 3mg/0.5mg Neb 3 Ml Vial) 3 ml NEB Q4R [facility]; Protocol Stop: 11/15/24 19:54 Last Admin: 10/17/24 11:05 Dose: 3 ml Documented By: Admin: 10/17/24 07:24 Dose: 3 ml Documented By: Admin: 10/17/24 03:56 Dose: Not Given Documented By: Admin: 10/17/24 01:16 Dose: 3 ml Documented By: Admin: 10/16/24 20:31 Dose: 3 ml Documented By: LU Azithromycin (Azithromycin 250 Mg Tab) 500 mg PO QAM [facility] Stop: 10/21/24 19:54 Last Admin: 10/17/24 08:04 Dose: 500 mg Documented By: Admin: 10/16/24 20:30 Dose: 500 mg Documented By: LU Cetirizine HCl (Cetirizine Hcl 10 Mg Tablet) 10 mg PO DAILY [facility] Stop: 11/16/24 08:59 Last Admin: 10/17/24 08:04 Dose: 10 mg Documented By: NIKOLE Fluticasone Propionate (Fluticasone Propionate Na Spr 16 Gm Btl) 1 sprays ELISABETH BID JEFFREY Stop: 11/16/24 08:59 Last Admin: 10/17/24 08:05 Dose: 1 sprays Documented By: NIKOLE Fluticasone/Vilanterol (Fluticasone/Vilanterol 200/25mcg 14 Puffs/Inhaler) 1 puffs INH DAILY JEFFREY Stop: 11/15/24 20:59 Last Admin: 10/17/24 08:05 Dose: 1 puffs Documented By: Admin: 10/16/24 22:21 Dose: 1 puffs Documented By: LU Piperacillin Sod/Tazobactam Sod (Zosyn) 4.5 gm in 100 mls @ 25 mls/hr IV Q8H [facility]; Protocol Stop: 10/22/24 00:00 Last Admin: 10/17/24 08:03 Dose: 25 mls/hr Documented By: Infusion: 10/17/24 05:32 Dose: Infused Documented By: Admin: 10/17/24 01:44 Dose: 25 mls/hr Documented By: NIKOS Methylprednisolone 40 mg/ (Syringe) 0.64 mls @ 1.5 mls/min IV Q12H JEFFREY Stop: 11/16/24 04:29 Last Admin: 10/17/24 05:31 Dose: 1.5 mls/min Documented By: NIKOS Ipratropium Avenel (Ipratropium Avenel Nasal Loyal 0.06% 15ml) 1 sprays ELISABETH DAILY JEFFREY Stop: 11/16/24 08:59 Last Admin: 10/17/24 08:05 Dose: 1 sprays Documented By: NIKOLE Losartan Potassium (Losartan Potassium 50 Mg Tab) 50 mg PO QAM JEFFREY Stop: 11/16/24 08:59 Last Admin: 10/17/24 08:04 Dose: 50 mg Documented By: NIKOLE Montelukast Sodium (Montelukast Sodium 10 Mg Tablet) 10 mg PO DAILY JEFFREY Stop: 11/16/24 08:59 Last Admin: 10/17/24 08:04 Dose: 10 mg Documented By: NIKOLE Pantoprazole Sodium (Pantoprazole 40 Mg Tab) 40 mg PO QPM JEFFREY Stop: 11/15/24 20:59 Last Admin: 10/16/24 22:18 Dose: 40 mg Documented By: LU Simvastatin (Simvastatin 20 Mg Tab) 20 mg PO QPM JEFFREY Stop: 11/15/24 20:59 Last Admin: 10/16/24 22:18 Dose: 20 mg Documented By: LU Umeclidinium Avenel (Umeclidinium Avenel 62.5mcg/Blister 7 Puffs/Inhaler) 1 puffs INH DAILY JEFFREY Stop: 11/16/24 08:59 Last Admin: 10/17/24 08:18 Dose: 1 puffs Documented By: [facility] Discontinued Medications Albuterol (Albut/Ipratrop 3mg/0.5mg Neb 3 Ml Vial) 3 ml NEB NOW STA; Protocol Stop: 10/16/24 15:32 Last Admin: 10/16/24 17:00 Dose: 3 ml Documented By: Albuterol (Albut/Ipratrop 3mg/0.5mg Neb 3 Ml Vial) 3 ml NEB NOW STA; Protocol Stop: 10/16/24 16:55 Last Admin: 10/16/24 17:11 Dose: 3 ml Documented By: Ceftriaxone Sodium (Rocephin) 2,000 mg in 50 mls @ 100 mls/hr IV NOW STA Stop: 10/16/24 17:23 Last Infusion: 10/16/24 18:14 Dose: Infused Documented By: Admin: 10/16/24 17:09 Dose: 100 mls/hr Documented By: Sodium Chloride (Nss) 1,000 mls @ 999 mls/hr IV .Q1H1M ONE Stop: 10/16/24 17:54 Last Infusion: 10/16/24 18:15 Dose: Infused Documented By: Admin: 10/16/24 17:08 Dose: 999 mls/hr Documented By: Piperacillin Sod/Tazobactam Sod (Zosyn) 4.5 gm in 100 mls @ 25 mls/hr IV NOW STA; Protocol Stop: 10/16/24 23:13 Last Infusion: 10/16/24 23:43 Dose: Infused Documented By: Admin: 10/16/24 19:26 Dose: 25 mls/hr Documented By: LU Methylprednisolone (Methylprednisolone 125 Mg/2 Ml Vial) 125 mg IV NOW STA Stop: 10/16/24 16:55 Last Admin: 10/16/24 17:03 Dose: 125 mg Documented By: SUSANA Potassium Chloride (Potassium Chloride Crtab 20 Meq Tabcr) 40 meq PO NOW STA Stop: 10/16/24 18:05 Last Admin: 10/16/24 19:00 Dose: 40 meq Documented By: LU Imaging Data Radiologist's Impression: Chest X-Ray 10/16/24 15:31 EXAM: Radiographs of the Chest 2 Views INDICATION: Dyspnea. Shortness of breath for 1 week. TECHNIQUE: Frontal and lateral views of the chest. COMPARISON: 08/17/2024 FINDINGS: Lungs and pleural spaces: New multifocal groundglass density in the right lung. Stable basilar scarring and right diaphragmatic elevation/eventration. Left lung is clear. No pleural effusion or pneumothorax. Heart: Stable large cardiac shadow. Mediastinum: Normal contour. Bones/joints: No fracture, erosion or dislocation. Vasculature: Stable ectatic aorta. IMPRESSION: New multifocal groundglass infiltrates in the right lung most concerning for pneumonia including viral etiologies. ACT 112: Negative or not required by law. Electronically signed by Merle Santos 10-16-2024 4:[address] 10/16/24 18:05 EXAM: CT Chest Without Intravenous Contrast INDICATION: Pneumonia. Possible adenopathy. TECHNIQUE: Axial computed tomography images of the chest without intravenous contrast. Sagittal and coronal reformatted images were created and reviewed. This CT exam was performed using one or more of the following dose reduction techniques: automated exposure control, adjustment of the mA and/or kV according to patient size, and/or use of iterative reconstruction technique. COMPARISON: Chest x-ray the same day FINDINGS: Limitations: None. Lungs and pleural spaces: There is a small layering right pleural effusion. No pneumothorax. There is moderate groundglass and consolidative infiltrate in the bilateral lower and right upper lobes. Confluent pleural-based component in the right paraspinal upper lobe measures approximately 3.0 x 2.4 x 4.7 cm. There is probable acute on chronic airway thickening. Heart: Mild cardiomegaly. No pericardial effusion. Dense coronary calcification noted. Thyroid: No abnormality noted. Bones/joints: Degenerative changes noted throughout the spine. No acute osseous abnormality seen. Soft tissues: No significant abnormality noted. Vasculature: No abnormality noted. No thoracic aortic aneurysm. Lymph nodes: There are few reactive subcentimeter paratracheal and precarinal nodes. No large hilar node is identified in the absence of IV contrast. IMPRESSION: Multifocal bilateral lower and right upper lobe pneumonia with mild reactive mediastinal nodes and small right pleural effusion. ACT 112: Negative or not required by law. Electronically signed by Merle Santos 10-16-2024 6:38 PM Discharge Plan Visit Data Chief Complaint: Shortness of Breath/Dyspnea Stated Complaint: POSSIBLE PNUEMONIA, COUGH ED Provider: Jonathan Duran Discharge Problem: Acute hypoxemic respiratory failure, Elevated troponin, Pneumonia involving right lung, Acute dyspnea, Cough, Asthma exacerbation Patient Disposition: Admitted As Inpatient Discharge Instructions Interventions: ED Discharge Assessment Last Done: 10/16/24 19:56 Discharge Problem: Pneumonia involving right lung Qualifiers: Pneumonia type: due to unspecified organism Lung location: middle lobe of lung Qualified Code(s): J18.9 - Pneumonia, unspecified organism Cough Qualifiers: Cough type: acute Qualified Code(s): R05.1 - Acute cough Asthma exacerbation Qualifiers: Asthma severity: unspecified severity Asthma persistence: unspecified Qualified Code(s): J45.901 - Unspecified asthma with (acute) exacerbation
[2024-10-16] MEDS: PIPERACILLIN/TAZOBACTAM 4.5 GM/100 ML BAG IV STA (19:26)
[2024-10-16 19:53] LABS: Appearance Urine Clear (Clear); Bilirubin Urine Negative (Negative); Blood Urine Negative (Negative); Color Urine Yellow; Glucose Urine UA Negative (Negative); Ketones Urine Negative (Negative); Leukocyte Esterase Urine Negative (Negative); Nitrite Urine Negative (Negative); Protein Urine Negative (Negative); Specific Gravity Urine 1.005 (1.000-1.030); Urobilinogen Urine Negative (Negative); pH Urine 6.5 (4.5-7.5)
[2024-10-16] MEDS ORDERED: ACETAMINOPHEN 325 MG TAB PO PRN (19:55)
[2024-10-16] MEDS ORDERED: DOCUSATE SODIUM 100 MG CAP PO PRN (19:55)
[2024-10-16] MEDS: AZITHROMYCIN 250 MG TAB PO SCH (20:30)
[2024-10-16] MEDS: ALBUT/IPRATROP 3MG/0.5MG NEB 3 ML VIAL NEB SCH (20:31)
--- NOTE | 2024-10-16 20:48 | Electrocardiogram Report ---
Test Reason : Blood Pressure : */* mmHG Vent. Rate : 93 BPM Atrial Rate : 93 BPM P-R Int : 156 ms QRS Dur : 144 ms QT Int : 402 ms P-R-T Axes : 64 -36 102 degrees QTcB Int : 499 ms Normal sinus rhythm Left axis deviation Left bundle branch block Abnormal ECG When compared with ECG of 02-Dec-2021 09:39, No significant change was found Confirmed by Rodney Ferraro ([id number]) on 10/16/2024 8:48:36 PM Referred By: Confirmed By: Rodney Ferraro
[2024-10-16] MEDS: SIMVASTATIN 20 MG TAB PO SCH (22:18)
[2024-10-16] MEDS: PANTOprazole 40 MG TAB PO SCH (22:18)
[2024-10-16] MEDS: FLUTICASONE/VILANTEROL 200/25MCG 14 PUFFS/INHALER INH SCH (22:21)
[2024-10-17] MEDS: PIPERACILLIN/TAZOBACTAM 4.5 GM/100 ML BAG IV SCH (01:44)
[2024-10-17] MEDS ORDERED: methylPREDNISolone 1000 MG/16 ML IV SCH (04:30)
[2024-10-17] MEDS: methylPREDNISolone 40 MG in SYRINGE 0 ML IV SCH (05:31)
[2024-10-17 07:20] LABS: Basophils # (auto) 0.03 K/uL (0.00-0.20); Basophils % (auto) 0.3 %; Hematocrit (blood only) 34.2 % (37.0-47.0); Hemoglobin 11.6 g/dl (12.0-16.0); Immature Granulocytes # (auto) 0.51 K/uL (0.01-0.20); Lymphocytes # (auto) 0.71 K/uL (1.20-3.40); Mean Corpuscular Hemoglobin 28.5 pg (25.0-34.0); Mean Corpuscular Hgb Conc 33.9 g/dL (32.0-36.0); Mean Platelet Volume 9.4 fL (9.4-12.4); Monocytes # (auto) 0.24 K/uL (0.11-0.59); Monocytes % (auto) 2.4 %; Neutrophils # (auto) 8.68 K/uL (1.40-6.50); Neutrophils % (auto) 85.3 %; Platelet Count 306 K/uL (130-400); RDW Coefficient of Variation 13.8 % (11.5-14.5); RDW Standard Deviation 42.5 fL (36.4-46.3); Red Blood Count 4.07 M/uL (4.20-5.40); White Blood Count 10.17 K/ul (4.8-10.8)
[2024-10-17 07:27] LABS: BUN Creatinine Ratio 19.1 (10-20); Calcium 8.1 mg/dl (8.6-10.3); Creatinine Clr Calc Pharmacy 59.6 ml/min; Potassium 3.9 mmol/L (3.5-5.1)
[2024-10-17 07:35] LABS: Troponin I High Sensitivity 24.6 pg/ml (0-14)
[2024-10-17] MEDS: LOSARTAN POTASSIUM 50 MG TAB PO SCH (08:04)
[2024-10-17] MEDS: CETIRIZINE HCL 10 MG TABLET PO SCH (08:04)
[2024-10-17] MEDS: MONTELUKAST SODIUM 10 MG TABLET PO SCH (08:04)
[2024-10-17] MEDS: FLUTICASONE PROPIONATE NA SPR 16 GM BTL NAE SCH (08:05)
[2024-10-17] MEDS: IPRATROPIUM BROMIDE NASAL SPRAY 0.06% 15ML NAE SCH (08:05)
[2024-10-17] MEDS: UMECLIDINIUM BROMIDE 62.5MCG/BLISTER 7 PUFFS/INHALER INH SCH (08:18)
--- NOTE | 2024-10-17 10:52 | Hospitalist Progress Note ---
Date of Service October 17, 2024 Assessment & Plan (1) Pneumonia: Plan: patient with fatigue, nonproductive cough, chills, shortness of breath with minimal exertion x 1 week CXR showing new multifocal ground glass infiltrates in the right lung was yamilet rning for pneumonia including viral etiologies, tracheal deviation to right CT Chest: multifocal bilateral lower and right upper lobe pneumonia with mild reactive mediastinal nodes and small right pleural effusion Biofire negative leukocytosis Improved. Pro-Hal elevated 0.89 On admission Continue Zosyn + Azithromycin (first day 10/16) MRSA swab negative sputum cultures ordered, uncollected Continue Solu-Medrol 40 mg IV BID supportive care: Incentive spirometry, flutter valve, Mucinex Wean O2 as tolerated, baseline is room air. 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 Resolved (5) Elevated troponin: Plan: peaked at 48; likely secondary to demand EKG showing NSR Plan peripheral eosinophilia - Eosinophil count mildly elevated, 1.03; Fasenra Q56 days allergic rhinitis - continue montelukast, ipratropium, mometasone nasal spray, and cetirizine hypersomnia - stable elevated alk phos - stable, 261 - recheck with a.m. labs VTE ppx: SCDs and ambulation Dispo: continued inpatient stay, weaning oxygen and pending PT/OT evaluations Admission and Anticipated Discharge Date Admission Date: October 16, 2024 Supervising Physician Co-Signing Physician Notes Attending Attestation - Chart reviewed, care plan d/w CARYN Johnson. I agree w/ the polk components of her documentation. Vitaliy Zee MD Subjective Patient seen lying in bed, states she feels a little bit better than yesterday. Has a cough but not coughing up much phlegm. Does not wear oxygen at baseline Lives alone uses a walker occasionally if she has walked long distance outside of the house. Has been using her flutter valve this morning Telemetry sinus rhythm with PACs 90s to 100 Review of Systems Review of Systems: All systems reviewed & are unremarkable except as noted in Subjective Physical Exam Physical Exam: General: NAD, VS as above Resp: normal respiratory effort, does appear conversationally dyspneic after extended periods of talking. Lung sounds are coarse throughout, no wheezing. On 2 L nasal cannula CV: RRR, no murmur, Abd: normal bowel sounds, non tender, no hepatosplenomegaly Extremities: Moves all extremities, no edema Neuro: A&O x3, Skin: intact, no lesions noted Results & Data Results & Data Vital Signs (Past 12 Hours) Vital Signs Temp Pulse Pulse Pulse Resp BP BP 10/17/24 08:12 10/17/24 07:43 98.6 F 89 18 163/75 H 10/17/24 07:24 90 18 10/17/24 07:20 90 10/17/24 02:35 98.4 F 101 H 18 153/64 H 10/17/24 01:19 100 H 20 10/17/24 00:45 101 H 10/17/24 00:35 10/17/24 00:35 98.1 F 103 H 22 10/16/24 23:30 100 H 33 H 142/91 H 10/16/24 23:14 100 H 10/16/24 23:00 101 H 33 H 154/101 H BP Pulse Ox O2 Del Method O2 Flow Rate 10/17/24 08:12 Nasal Cannula 2 10/17/24 07:43 92 Nasal Cannula 2 10/17/24 07:24 95 Nasal Cannula 2 10/17/24 07:20 10/17/24 02:35 94 Nasal Cannula 2 10/17/24 01:19 98 Nasal Cannula 2 10/17/24 00:45 10/17/24 00:35 Nasal Cannula 2 10/17/24 00:35 167/82 H 94 Nasal Cannula 2 10/16/24 23:30 94 10/16/24 23:14 10/16/24 23:00 94 Laboratory Results CBC, chemistry reviewed Troponin reviewed PG Care Time/CCT Total # of Minutes Spent Total Time Spent with Patient: Total time spent is greater than 50% in coordination of care (as documented) at patient's floor/unit and/or counseling patient: Coding Level of Care Code 03946 SUB INP/OBS CARE MIN Diagnoses Pneumonia J18.9 Asthma, persistent not controlled J45.998 Hyperglycemia R73.9 Hypokalemia E87.6 Elevated troponin R79.89
[2024-10-17] MEDS ORDERED: CARBOHYDRATES FOR HYPOGLYCEMIA PO PRN (12:26)
[2024-10-17] MEDS ORDERED: DEXTROSE 50% 50 ML SYRINGE IV PRN (12:26)
[2024-10-17] MEDS ORDERED: GLUCOSE 10 TAB/TUBE PO PRN (12:26)
[2024-10-17] MEDS ORDERED: GLUCOSE 40% GEL 15 GM TUBE PO PRN (12:26)
[2024-10-17] MEDS ORDERED: GLUCAGON FOR INJ 1 MG VIAL SQ PRN (12:26)
[2024-10-17] MEDS: guaiFENesin 600 MG TABCR PO SCH (13:49)
[2024-10-17] MEDS: INSULIN ASPART PER UNIT CHARGE SC SCH (17:42)
[2024-10-18 10:53] LABS: Hemoglobin 11.4 g/dl (12.0-16.0); Mean Corpuscular Hemoglobin 28.4 pg (25.0-34.0); Mean Corpuscular Hgb Conc 33.5 g/dL (32.0-36.0); Mean Corpuscular Volume 84.6 fL (80.0-100.0); Mean Platelet Volume 8.9 fL (9.4-12.4); Platelet Count 299 K/uL (130-400); RDW Coefficient of Variation 14.3 % (11.5-14.5); RDW Standard Deviation 44.3 fL (36.4-46.3); Red Blood Count 4.02 M/uL (4.20-5.40); White Blood Count 13.48 K/ul (4.8-10.8)
[2024-10-18 11:20] LABS: Albumin Globulin Ratio 1.1 (0.9-2); Albumin Level 3.1 gm/dl (3.4-5.0); BUN Creatinine Ratio 26.6 (10-20); Bilirubin,Total 0.5 mg/dl (0.2-1.0); Calcium 7.9 mg/dl (8.6-10.3); Creatinine Clr Calc Pharmacy 64.3 ml/min; Globulin 2.9 gm/dl (2.5-4.0); Potassium 3.4 mmol/L (3.5-5.1)
[2024-10-18 11:34] LABS: Basophils # (auto) 0.05 K/uL (0.00-0.20); Basophils % (auto) 0.4 %; Immature Granulocytes # (auto) 0.83 K/uL (0.01-0.20); Immature Granulocytes % (auto) 6.2 %; Lymphocytes # (auto) 0.74 K/uL (1.20-3.40); Lymphocytes % (auto) 5.5 %; Monocytes # (auto) 0.33 K/uL (0.11-0.59); Monocytes % (auto) 2.4 %; Neutrophils # (auto) 11.53 K/uL (1.40-6.50); Neutrophils % (auto) 85.5 %; Toxic Granulation 2+
--- NOTE | 2024-10-18 18:16 | Hospitalist Progress Note ---
Date of Service October 18, 2024 Assessment & Plan (1) Pneumonia: Plan: patient with fatigue, nonproductive cough, chills, shortness of breath with minimal exertion x 1 week CXR showing new multifocal ground glass infiltrates in the right lung was yamilet rning for pneumonia including viral etiologies, tracheal deviation to right CT Chest: multifocal bilateral lower and right upper lobe pneumonia with mild reactive mediastinal nodes and small right pleural effusion Biofire negative leukocytosis Improved. Pro-Hal elevated 0.89 On admission Continue Zosyn + Azithromycin (first day 10/16). MRSA swab negative sputum cultures ordered, uncollected Continue Solu-Medrol 40 mg IV - decrease to daily. Scheduled nebs supportive care: Incentive spirometry, flutter valve, Mucinex Wean O2 as tolerated, baseline is room air. 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 prednisone use with 1 Mg x 1 year, titrated down to 0.5 Mg for all of September last dose 10/16 CT chest showed confluent pleural-based component in right paraspinal upper lobe probable acute on chronic airway thickening Continue home Wixela, Montelukast, Spiriva (3) Hyperglycemia: Plan: hemoglobin A1c 5.8 07/2024 Elevated sugars likely due to steroid use Continue BSG ACHS and low-dose SSI - should not have to be continued at discharge (4) Hypokalemia: Plan: resolved, replete PO (5) Elevated troponin: Plan: peaked at 48; likely secondary to demand EKG showing NSR Plan peripheral eosinophilia - Eosinophil count mildly elevated, 1.03; Fasenra Q56 days allergic rhinitis - continue montelukast, ipratropium, mometasone nasal spray, and cetirizine hypersomnia - stable elevated alk phos - stable, 261 with recheck down to 194 VTE ppx: SCDs and ambulation Dispo: continued inpatient stay, weaning oxygen and pending PT evaluations Admission and Anticipated Discharge Date Admission Date: October 16, 2024 Supervising Physician Co-Signing Physician Notes Attending Attestation - Chart reviewed, care plan d/w CARYN Johnson. I agree w/ the polk components of her documentation. Vitaliy Zee MD Subjective patient seen sitting up in the chair, just got done visiting with a friend. Feels that she is doing a little bit better, still requiring oxygen. Has a cough but has not become productive yet. Appetite is improving, no bowel changes. Telemetry sinus rhythm in the Review of Systems Review of Systems: All systems reviewed & are unremarkable except as noted in Subjective Physical Exam Physical Exam: General: NAD, VS as above Resp: normal respiratory effort, no conversational dyspnea today. no wheezing. On 2 L nasal cannula CV: RRR, no murmur, Abd: normal bowel sounds, non tender, no hepatosplenomegaly Extremities: Moves all extremities, no edema Neuro: A&O x3, Skin: intact, no lesions noted Results & Data Results & Data Vital Signs (Past 12 Hours) Vital Signs Temp Pulse Pulse Resp BP Pulse Ox Pulse Ox 10/18/24 15:48 98.1 F 98 H 18 158/83 H 94 10/18/24 14:25 100 H 20 95 10/18/24 13:53 98 H 10/18/24 12:59 94 10/18/24 11:43 97.5 F L 96 H 20 165/55 H 92 10/18/24 11:06 81 20 97 10/18/24 07:52 97.9 F 98 H 20 128/66 92 10/18/24 07:49 10/18/24 07:22 89 20 96 10/18/24 07:16 92 H Pulse Ox Pulse Ox O2 Del Method O2 Flow Rate O2 Flow Rate O2 Flow Rate O2 Flow Rate 10/18/24 15:48 Nasal Cannula 1 10/18/24 14:25 Nasal Cannula 2 10/18/24 13:53 10/18/24 12:59 94 93 2 2 2 10/18/24 11:43 Nasal Cannula 2 10/18/24 11:06 Nasal Cannula 2 10/18/24 07:52 Nasal Cannula 3 10/18/24 07:49 Nasal Cannula 10/18/24 07:22 Nasal Cannula 2 10/18/24 07:16 Laboratory Results CBC and chemistry reviewed PG Care Time/CCT Total # of Minutes Spent Total Time Spent with Patient: Total time spent is greater than 50% in coordination of care (as documented) at patient's floor/unit and/or counseling patient: Coding Level of Care Code 45766 SUB INP/OBS CARE 3/50MIN Diagnoses Pneumonia J18.9 Asthma, persistent not controlled J45.998 Hyperglycemia R73.9 Hypokalemia E87.6 Elevated troponin R79.89
[2024-10-19 07:14] LABS: Calcium 7.8 mg/dl (8.6-10.3); Potassium 3.7 mmol/L (3.5-5.1)
[2024-10-19] MEDS: methylPREDNISolone 40 MG in SYRINGE 0 ML IV SCH (08:15)
[2024-10-19] MEDS ORDERED: ALBUT/IPRATROP 3MG/0.5MG NEB 3 ML VIAL NEB PRN (12:38)
--- NOTE | 2024-10-19 17:02 | Hospitalist Progress Note ---
Date of Service October 19, 2024 Assessment & Plan (1) Pneumonia: Plan: patient with fatigue, nonproductive cough, chills, shortness of breath with minimal exertion x 1 week CXR showing new multifocal ground glass infiltrates in the right lung was yamilet rning for pneumonia including viral etiologies, tracheal deviation to right CT Chest: multifocal bilateral lower and right upper lobe pneumonia with mild reactive mediastinal nodes and small right pleural effusion Biofire negative leukocytosis Improved. Pro-Hal elevated 0.89 On admission Continue Zosyn + Azithromycin (first day 10/16). MRSA swab negative sputum cultures: preliminary with normal xiomara Continue Solu-Medrol 40 mg IV - decrease to daily supportive care: Incentive spirometry, flutter valve, Mucinex. 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 with peripheral eosinophilia long-term prednisone use with 1 Mg x 1 year, titrated down to 0.5 Mg for all of September last dose 10/16 CT chest showed confluent pleural-based component in right paraspinal upper lobe probable acute on chronic airway thickening Continue home Wixela, Montelukast, Spiriva (3) Hyperglycemia: Plan: hemoglobin A1c 5.8 07/2024 Elevated sugars likely due to steroid use, have improved with decreasing steroids Continue BSG ACHS and low-dose SSI BSG low normal - will loosen parameters (4) Hypokalemia: Plan: resolved, replete PO (5) Elevated troponin: Plan: peaked at 48; likely secondary to demand ischemia EKG showing NSR Plan peripheral eosinophilia - Eosinophil count mildly elevated, 1.03; Fasenra Q56 days allergic rhinitis - continue montelukast, ipratropium, mometasone nasal spray, and cetirizine hypersomnia - stable elevated alk phos - stable, 261 with recheck down to 194 VTE ppx: SCDs and ambulation Dispo: continued inpatient stay, possible discharge tomorrow Offered to call family to update, patient declined stating she was recently updated by nursing Admission and Anticipated Discharge Date Admission Date: October 16, 2024 Supervising Physician Co-Signing Physician Notes Attending Attestation - Chart reviewed, care plan d/w CARYN Johnson. I agree w/ the polk components of her documentation. Vitaliy Zee MD Subjective Patient seen sitting up in the chair on room air. Had not worked with PT at the time of my evaluation. She is eager to go home. Discussed my concerns with her two story set up. She did think her neighbor woud be able to stay with her for a few days while she is healing. Cough is slighly more productive. telemetry sinus rhythm with IVCD 80s to 90s Review of Systems Review of Systems: All systems reviewed & are unremarkable except as noted in Subjective Physical Exam Physical Exam: General: NAD, VS as above, sitting up in the chair, pleasant Resp: normal respiratory effort, no conversational dyspnea today. no wheezing. diminished in bases, on room air CV: RRR, no murmur, Abd: normal bowel sounds, non tender, no hepatosplenomegaly Extremities: Moves all extremities, no edema Neuro: A&O x3, Skin: intact, no lesions noted Results & Data Results & Data Vital Signs (Past 12 Hours) Vital Signs Temp Pulse Pulse Resp BP Pulse Ox O2 Del Method 10/19/24 16:05 92 10/19/24 15:35 98.0 F 88 18 172/75 H 91 Room Air 10/19/24 15:04 86 10/19/24 12:04 97.9 F 94 H 20 154/79 H 92 Nasal Cannula 10/19/24 10:22 69 17 95 Nasal Cannula 10/19/24 08:07 Nasal Cannula 10/19/24 08:00 85 20 95 Nasal Cannula 10/19/24 07:45 97.9 F 83 18 156/80 H 93 Nasal Cannula 10/19/24 07:33 83 O2 Flow Rate 10/19/24 16:05 10/19/24 15:35 10/19/24 15:04 10/19/24 12:04 1 10/19/24 10:22 1 10/19/24 08:07 1 10/19/24 08:00 2 10/19/24 07:45 1 10/19/24 07:33 Laboratory Results BMP reviewed PG Care Time/CCT Total # of Minutes Spent Total Time Spent with Patient: Total time spent is greater than 50% in coordination of care (as documented) at patient's floor/unit and/or counseling patient: Coding Level of Care Code 58638 SUB INP/OBS CARE 3/50MIN Diagnoses Pneumonia J18.9 Asthma, persistent not controlled J45.998 Hyperglycemia R73.9 Hypokalemia E87.6 Elevated troponin R79.89
[2024-10-20 11:32] VITALS: RESP 20; TEMP 99.1; O2SAT 90
[2024-10-20 13:08] VITALS: BP 188/65; PULSE 100
--- NOTE | 2024-10-20 17:32 | Discharge Summary ---
Discharge Summary Date of Service October 20, 2024 Principal Dx & Hospital Course #1 = Principal Diagnosis (1) Pneumonia: patient with fatigue, nonproductive cough, chills, shortness of breath with minimal exertion x 1 week CXR showing new multifocal ground glass infiltrates in the right lung was concerning for pneumonia including viral etiologies, tracheal deviation to right CT Chest: multifocal bilateral lower and right upper lobe pneumonia with mild reactive mediastinal nodes and small right pleural effusion Biofire negative Was treated with Zosyn + Azithromycin. Completed course of azirtho. Also had Solu-Medrol IV. Discharged with cefpodximine and Prednisone taper. Has maintained room air for 24 hours. PT/OT recommend home with home health (Case management to follow up Tuesday). Patient reports she has friends that will be able to provide help as well. Continue supportive care: Incentive spirometry, flutter valve, Mucinex. sputum cultures: tremayne - suspect contamination from mouth with inhaler - did not recieve antifungals and she improved. 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 (4) Hypokalemia: resolved, replete PO (5) Elevated troponin: peaked at 48; likely secondary to demand ischemia EKG showing NSR Plan peripheral eosinophilia - Eosinophil count mildly elevated, 1.03; Fasenra Q56 days allergic rhinitis - continue montelukast, ipratropium, mometasone nasal spray, and cetirizine hypersomnia - stable elevated alk phos - stable, 261 with recheck down to 194 Dispo: discharge to home today Offered to call family to update, patient declined stating she was recently updated by nursing Admission HPI Per Admitting Provider Patient is an 84-year-old female with past medical history of persistent uncontrolled asthma, peripheral eosinophilia, hypersomnia, Polymyalgia rheumatica. She presents after being sent by her PCP. stated that she started with flulike symptoms on 10/09. She started with fatigue, chills, worsening shortness of breath. She has a cough and shortness of breath at baseline but it is acutely worsened. She denies any sputum production. She has had no sick contacts that she knows of. She did take her temperature at home and it was 97.7. She has been using her home inhalers regularly. She was on long-term pr ednisone for 1 year, she was tapered down to 0.5 Mg in September and just took her last dose today. Patient denies headache, dizziness, lightheadedness, sputum production, chest pain, abdominal pain, nausea, vomiting, edema, numbness, tingling. Discharge Exam General: NAD, VS as above, lying in bed, excited to hear she can go home Resp: normal respiratory effort, no conversational dyspnea today. no wheezing. lungs clear. CV: RRR, no murmur, Abd: normal bowel sounds, non tender, no hepatosplenomegaly Extremities: Moves all extremities, no edema Neuro: A&O x3, Skin: intact, no lesions noted Discharge Plan Discharge Items Patient Disposition: Home - Home Health Services Reason For Visit: PNA Discharge Diagnosis: pneumonia Activity: As commented below Activity Comment: gradually increase as tolerated Bathing: No limitations Weightbearing: Full weightbearing Non-emergency contact: Primary Care Provider Call non-emergency contact if: you have any medication questions, your symptoms worsen, your pain is not controlled and your temperature is above 101 Follow-up/Referrals: Renetta Blancas DO [Primary Care Provider] - ( follow-up within 7 days) Diet: Carb Consistent or DM2 Addtl Attending Provider Instructions: Ms. Persaud, You were hospitalized after having pneumonia and requiring oxygen. Thankfully, you have improved with IV antibiotics and steroids. You will be discharged on oral steroids and one antibiotic that you should start tomorrow 10/21. Continue to take mucinex and use your incentive spirometer and flutter valve until you are feeling better. Mucinex is available over the counter, but I have sent in a prescription, if your insurance does not cover this, please purchase the over the counter version. If your breathing does not feel back to normal in 7-10 days, recommend follow up with pulmonology. Therapy recommended home health services and this has been arranged for you. Please take it easy over the next few days until you are feeling better. You had insulin in the hospital because your blood sugars were high with the high dose steroids we were giving you. Your insulin does not have to be continued at discharge. No changes to your home medications. Activity: You can do normal everyday activities as your body allows. Take rest breaks if you feel tired. Do not overexert. Stop activity if you have pain, shortness of breath or feel dizzy. Follow-up appointments: Make an appointment with your primary care physician within one week of discharge. A copy of this summary will be sent to them. Every time you see your primary care physician, or any other doctor, bring your medication list, and a list of questions. CONTACT YOUR PRIMARY CARE PROVIDER if you experience any of the following: Shortness of breath or difficulty breathing Fevers or chills Feeling tired with normal activity or experiencing dizziness or fainting Difficulty following your treatment plan, or difficulty taking medications CALL 911 OR GO TO THE EMERGENCY DEPARTMENT if you experience any of the following: Severe abdominal pain or nausea/vomiting Severe chest pain, or chest pain that radiates (moves) to your jaw or arm Sudden, severe shortness of breath or difficulty breathing Thank you for allowing us to participate in your care. Jigna Johnson PA-C Pending Studies at Discharge: No Stand-Alone Forms: My [facility] [employer], Smoking Cessation Medications and DC Order Prescriptions: New guaifenesin [Mucinex] 600 mg Tablet Extended Release 12hr 600 mg PO Q12 Qty: 6 0RF cefpodoxime 200 mg tablet 200 mg PO BID Qty: 6 0RF Rx Instructions: must administer with a meal/food prednisone 20 mg tablet See Taper PO DAILY Qty: 9 0RF Taper: Taper, Blank 40 mg DAILY for 3 Days 20 mg DAILY for 3 Days Continued zoledronic [id number] [Reclast] 5 mg/100 mL piggyback 1 ea IV .UD Rx Instructions: No auth needed. Pt is scheduled on 10/20/23 at 2:00 pm. montelukast 10 mg tablet 10 mg PO DAILY Qty: 90 3RF omeprazole 20 mg capsule,delayed release(DR/EC) 20 mg PO QPM Qty: 90 3RF Rx Instructions: TAKE 1 CAPSULE ONCE DAILY cetirizine 10 mg tablet 10 mg PO DAILY Spiriva Respimat 1.25 mcg/actuation mist 2 puff inhalation DAILY Qty: 3 3RF Fasenra 30 mg/mL syringe 30 mg subcut .COMPLEX Qty: 1 9RF Rx Instructions: Initially 30mg subcutaneously every 28 days for 3 doses, as loading dose Then 30mg subcutaneously every 56 days as maintenance dose PA approved 07/22/24-09/20/25 [id number] albuterol sulfate 90 mcg/actuation HFA aerosol inhaler 2 puff inhalation Q4H PRN (Reason: shortness of breath or wheezing) Qty: 3 3RF fluticasone propion-salmeterol [Wixela Inhub] 500-50 mcg/dose blister with device 1 inh inhalation BID Qty: 180 3RF ipratropium bromide 21 mcg (0.03 %) spray,non-aerosol 2 spray intranasal DAILY Qty: 90 3RF Rx Instructions: administer into each nostril losartan [Cozaar] 50 mg tablet 50 mg PO QAM Qty: 90 3RF mometasone 50 mcg/actuation spray,non-aerosol 1 spray INTNAS BID Qty: 51 3RF Rx Instructions: administer into each nostril twice daily 90 day supply simvastatin 20 mg tablet 20 mg PO QPM Qty: 90 3RF calcium carbonate-vitamin D3 [Calcium 500 + D] 500 mg(1,250mg) -200 unit tablet 2 tab PO QAM Discharge Orders: Discharge Order (Routine); Ordered 10/20/24 Ordered By: Jigna Johnson Admission Data Admit Date/Time: 10/16/24 18:17 Attending Provider: Vitaliy Zee Admit Provider: Adiel Whitman Primary Care Provider: Renetta Blancas Other Providers: Adiel Whitman; [facility] Other Interventions: Discharge Summary Assessment (RN) Last Done: 10/20/24 13:07 Hospital Stay Data Consultations 10/16/24 16:55 ED Decision to Admit Stat Diagnostic Imagining Performed Chest X-Ray 10/16/24 15:31 EXAM: Radiographs of the Chest 2 Views INDICATION: Dyspnea. Shortness of breath for 1 week. TECHNIQUE: Frontal and lateral views of the chest. COMPARISON: 08/17/2024 FINDINGS: Lungs and pleural spaces: New multifocal groundglass density in the right lung. Stable basilar scarring and right diaphragmatic elevation/eventration. Left lung is clear. No pleural effusion or pneumothorax. Heart: Stable large cardiac shadow. Mediastinum: Normal contour. Bones/joints: No fracture, erosion or dislocation. Vasculature: Stable ectatic aorta. IMPRESSION: New multifocal groundglass infiltrates in the right lung most concerning for pneumonia including viral etiologies. ACT 112: Negative or not required by law. Electronically signed by Merle Santos 10-16-2024 4:[address] 10/16/24 18:05 EXAM: CT Chest Without Intravenous Contrast INDICATION: Pneumonia. Possible adenopathy. TECHNIQUE: Axial computed tomography images of the chest without intravenous contrast. Sagittal and coronal reformatted images were created and reviewed. This CT exam was performed using one or more of the following dose reduction techniques: automated exposure control, adjustment of the mA and/or kV according to patient size, and/or use of iterative reconstruction technique. COMPARISON: Chest x-ray the same day FINDINGS: Limitations: None. Lungs and pleural spaces: There is a small layering right pleural effusion. No pneumothorax. There is moderate groundglass and consolidative infiltrate in the bilateral lower and right upper lobes. Confluent pleural-based component in the right paraspinal upper lobe measures approximately 3.0 x 2.4 x 4.7 cm. There is probable acute on chronic airway thickening. Heart: Mild cardiomegaly. No pericardial effusion. Dense coronary calcification noted. Thyroid: No abnormality noted. Bones/joints: Degenerative changes noted throughout the spine. No acute osseous abnormality seen. Soft tissues: No significant abnormality noted. Vasculature: No abnormality noted. No thoracic aortic aneurysm. Lymph nodes: There are few reactive subcentimeter paratracheal and precarinal nodes. No large hilar node is identified in the absence of IV contrast. IMPRESSION: Multifocal bilateral lower and right upper lobe pneumonia with mild reactive mediastinal nodes and small right pleural effusion. ACT 112: Negative or not required by law. Electronically signed by Merle Santos 10-16-2024 6:38 PM Pending Results Patient Have Any Pending Studies at Discharge: No Discharge Instructions Given to Patient (Per Discharging Provider) Ms. Persaud, You were hospitalized after having pneumonia and requiring oxygen. Thankfully, you have improved with IV antibiotics and steroids. You will be discharged on oral steroids and one antibiotic that you should start tomorrow 10/21. Continue to take mucinex and use your incentive spirometer and flutter valve until you are feeling better. Mucinex is available over the counter, but I have sent in a prescription, if your insurance does not cover this, please purchase the over the counter version. If your breathing does not feel back to normal in 7-10 days, recommend follow up with pulmonology. Therapy recommended home health services and this has been arranged for you. Please take it easy over the next few days until you are feeling better. You had insulin in the hospital because your blood sugars were high with the high dose steroids we were giving you. Your insulin does not have to be continued at discharge. No changes to your home medications. Activity: You can do normal everyday activities as your body allows. Take rest breaks if you feel tired. Do not overexert. Stop activity if you have pain, shortness of breath or feel dizzy. Follow-up appointments: Make an appointment with your primary care physician within one week of discharge. A copy of this summary will be sent to them. Every time you see your primary care physician, or any other doctor, bring your medication list, and a list of questions. CONTACT YOUR PRIMARY CARE PROVIDER if you experience any of the following: Shortness of breath or difficulty breathing Fevers or chills Feeling tired with normal activity or experiencing dizziness or fainting Difficulty following your treatment plan, or difficulty taking medications CALL 911 OR GO TO THE EMERGENCY DEPARTMENT if you experience any of the following: Severe abdominal pain or nausea/vomiting Severe chest pain, or chest pain that radiates (moves) to your jaw or arm Sudden, severe shortness of breath or difficulty breathing Thank you for allowing us to participate in your care. Jigna Johnson PA-C Total Time Total Time Spent Total Time Spent (In Minutes): Time spent day of discharge 35 minutes including direct patient care, medication reconciliation, documentation, review of labs and images, and coordination of care. Coding Level of Care Code 21671 INP/OBS DISCH >30 MIN Diagnoses Pneumonia J18.9 Asthma, persistent not controlled J45.998 Hyperglycemia R73.9 Hypokalemia E87.6 Elevated troponin R79.89
== END 2024-10-20 15:36 | disposition home health service (06) | DRG 194 ==
LOC: ED 15:19 → SUATTDRO 18:17 → EDINP 18:17 → 2N 19:56
DX: I10 Essential (primary) hypertension; I24.89 Other forms of acute ischemic heart disease; Z88.1 Allergy status to other antibiotic agents; T38.0X5A Adverse effect of glucocorticoids and synthetic analogues, initial encounter; J45.998 Other asthma; E78.5 Hyperlipidemia, unspecified; E87.6 Hypokalemia; R73.9 Hyperglycemia, unspecified; D72.19 Other eosinophilia; J30.9 Allergic rhinitis, unspecified; R74.8 Abnormal levels of other serum enzymes; Y92.019 Unspecified place in single-family (private) house as the place of occurrence of the external cause; J18.9 Pneumonia, unspecified organism

== ENCOUNTER 2025-07-27 07:38 | Inpatient (IN) ==
--- NOTE | 2025-07-27 07:50 | Emergency Department Note ---
Impression & Plan CAP (community acquired pneumonia), Fever, Myalgia ED Provider Note NAME: PEE PATEL AGE: 84 SEX: F : 1940 ARRIVES VIA: Ambulance INFORMANT: Patient, ED PROVIDER(S): Jonathan Duran MD CHIEF COMPLAINT: Myalgias, chills, fever MEDICAL DECISION MAKING: Patient presents with the above afebrile here in the department. IV was established and blood work was obtained along with an EKG chest x-ray. Urinalysis and BioFire also performed. The patient was ordered 500 of IV fluids as well as a gram of p.o. Tylenol. The patient's blood work does show a white count of 13 with a normal hemoglobin and platelet count. The patient's kidney function is unremarkable but does show prerenal azotemia. Magnesium of 1.6 which may be replaced. Upon reassessment the patient did have improvement in symptoms. Urinalysis still pending but BioFire negative and the patient's chest x-ray showed the possibility of atelectatic changes changes of the right lower lobe. Patient's blood pressure though is still borderline soft with borderline oxygen in the low 90s with heart rate in the 90s. Given these concerns and the possibility of her decompensating given her age and comorbidities do believe the patient would benefit from inpatient treatment at this time. Procalcitonin and lactate and blood cultures were drawn and the patient was ordered IV cefepime. I did speak with Dr. Fountain and the patient was admitted by the medicine service. The patient's procalcitonin was noted to be 2.08. Lactate is normal. Cultures pending at the time of admission. Discussion w/ other healthcare providers: Dr. Fountain inpatient medicine service Prior /Outside records reviewed: I reviewed part of a PCP visit from February 27, 2025 with Deirdre Martins. Patient did have intertrigo noted. Patient with a prior history of asthma hypertension hyperlipidemia as well as benign brain tumor. Differential diagnosis: Viral syndrome, otitis, pharyngitis, pneumonia, influenza, meningitis, urinary tract infection, sepsis, bacteremia, as well as other pathologies. Diagnostics, as interpreted by me: ECG: Sinus tachycardia, rate of 108, normal intervals, left axis deviation, wide QRS, left bundle branch block pattern. No obvious Sgarbossa criteria. Cardiac monitoring: An order was placed for continuous cardiac monitoring. The monitor shows a rate of 92 with sinus rhythm. Patient was placed on pulse oximetry Medical decision rules: None Imaging studies: I informally interpreted the patient's chest x-ray does not show obvious pneumothorax with formal report to follow. HPI: Patient presents from home due to concern for chills and myalgias. The patient states that she developed symptoms beginning around 11 PM last evening. The patient reportedly did temp of 101 and a saturation of 90% for EMS. Patient denies any cough. She denies any abdominal pain nausea vomiting or diarrhea. Patient did not take anything and did not receive anything prior to arrival. She denies any known sick contacts or any recent travel and no urinary symptoms. She denies any dysuria or frequency. Patient states that it does feel as though her right ear is full. No sore throat or congestion. PAST MEDICAL HISTORY: See Below PAST SURGICAL HISTORY: See Below SOCIAL HISTORY: See Below HOME MEDICATIONS: See Below ALLERGIES: See Below VITALS: See Below PHYSICAL EXAMINATION: GENERAL: NAD, non-toxic. EYE EXAM: Normal conjunctiva. PERRL, no anisocoria and EOM's grossly intact w/o pain. Ears: Right TM clear without effusion. Good light reflex. OROPHARYNX: Moist mucus membranes, grossly normal dentition. NECK: Trachea midline, no stridor. LUNGS: Clear to auscultation. Normal chest wall mechanics. HEART: Tachycardic and regular, no MRG. ABDOMEN: Abdomen soft, non-tender, no masses, no rebound or guarding. BACK: No CVA TTP. SKIN: No rashes and no bruising. UPPER EXTREMITIES: Upper extremities are grossly normal. LOWER EXTREMITIES: Grossly normal, no edema. NEURO EXAM: Awake and alert, follows commands, no obvious facial asymmetry, normal speech, moves all 4 extremities. Past Med/Surg History Problem List (Updated 07/27/25 @ 14:32 by Jonathan Duran MD) Myalgia (Acute) Fever (Acute) CAP (community acquired pneumonia) (Acute) Hypomagnesemia Neutrophilic leukocytosis Malaise and fatigue Immunocompromised state due to drug therapy Community acquired pneumonia Nasal polyps Intertrigo Concern about memory Allergic rhinitis with postnasal drip Hypersomnia Peripheral eosinophilia Osteoporosis long-term (current) use of systemic steroids Polymyalgia rheumatica Chronic sinusitis, unspecified Meningioma Asthma, moderate persistent Bilateral cataracts Radial scar of breast Colon polyp (~01/13/22) Sensorineural hearing loss (SNHL) of both ears Poorer WRS in left ear Impacted cerumen of left ear Hypertension Hyperlipidemia Nasal polyposis Selective deficiency of IgG GERD (gastroesophageal reflux disease) controlled Right knee DJD (Acute 07/18/14) Medical History Brain tumor (benign) Asthmatic bronchitis Family history of coronary arteriosclerosis Hyperglycemia History of colon polyps Family history of reaction to anesthesia SOME MEMBERS OF FAMILY - N/V , DIZZINESS ? - UNKNOWN FURTHER DETAILS History of colon polyps ? PT NOT SURE - UPCOMING COLONOSCOPY JANUARY 2022 Back pain ACHE WITH EXTENDED STANDING OR WALKING PERIODS Hyperlipidemia HTN (hypertension) Asthma well controlled LBBB (left bundle branch block) chronic dating back to 2013 DSE PT NOT SURE Surgical History H/O right breast biopsy H/O right inguinal hernia repair (12/15/21) Needle localization right breast biopsy. Dr. Horton 12/15/2021 H/O wrist surgery 02/2020 Hx of tonsillectomy Hx of breast lump removal 1985 left History of nasal surgery B/L endoscopic sinus surgery: 12/12/15: Grade view 1, MAC#3, ETT 7.0 at [facility] History of right knee joint replacement History of bowel resection PERFORATED BOWEL FROM COLONOSCOPY 08/1996 History of colonoscopy (02/2022) Family History Brother Family history of diabetes mellitus Heart disease Asthma Diabetes Mother Asthma Father Colon cancer Sister Heart disease Uncle Colon cancer Prostate cancer Grandmother (Paternal) Breast cancer Family/Other Breast cancer Other Allergies Hearing loss Hypertension No family history of bleeding disorder Denies family history of Ovarian cancer Myocardial infarction Cancer Stroke Social History Smoking Status: Never smoker Second Hand Exposure: No; Do You Dip or Chew Tobacco: No; Tobacco Cessation Education Requested by Patient: No Hx Alcohol Use: Yes Alcohol type: wine Alcohol Intake Frequency: Monthly or Less Hx Substance Use: No Preferred Language: Portuguese Communication Ability: Effective Visual Impairment: No Limitations Hearing Ability: Hard of Hearing Shield Cleaner Required: No Beliefs That Will Affect Care: None marital status: Current Living Situation: Alone current occupational status: retired Other Information That Helps Us Care for You: No Feels Safe at Home: Yes Safety Concerns: Feels Safe At This Time Childhood Exposure to Second-Hand Smoke: Yes Dental Care, Regularly: Yes Physical Activity Frequency: 1-2 Times per Week Seatbelt Use: always Sunscreen Use: No Assistive Devices: Cane and Walker Allergies Allergies Allergy/AdvReac Type Severity Reaction Status Date / Time adhesive Allergy Mild REDNESS, Verified 07/27/25 10:11 RASH amoxicillin AdvReac Mild PT UNSURE Verified 07/27/25 10:11 REACTION, ? itchy Perfumes Allergy Severe SOB Uncoded 07/27/25 10:11 DUST Allergy Unknown Sneezing Uncoded 07/27/25 10:11 Home Meds Home Medications Medication Instructions Recorded Confirmed calcium 500 mg (as 2 tab PO QAM 08/05/20 07/27/25 carbonate)-vitamin D3 5 mcg (200 unit) tablet (Calcium 500 + D) cetirizine 10 mg tablet 10 mg PO DAILY 01/14/23 07/27/25 zoledronic acid 5 mg/100 mL in 1 ea IV .UD 09/30/23 07/27/25 mannitol 5 %-water intravenous piggybck (Reclast) antiarthritic combination no.2 900 2 mg PO DAILY 10/23/24 07/27/25 mg tablet (glucosamine-chondroitin) ztpnlyhznfrn-Vz-ixow-minerals 18 1 tab PO DAILY 10/23/24 07/27/25 mg-0.4 mg tablet omega 5-ehf-xlz-fish oil 1,200 mg 1 cap PO DAILY 10/23/24 07/27/25 (144 mg-216 mg) capsule (Fish Oil) vitamin A 2,400 mcg capsule 2,400 mcg PO DAILY 10/23/24 07/27/25 mometasone 50 mcg/actuation nasal 1 spray intranasal BID 12/20/24 07/27/25 spray (Nasonex 24hr Allergy) clotrimazole 1 %-betamethasone 0 pkg topical UD 07/27/25 07/27/25 0.05 % cream-zinc ox 20 % paste topical Previous Rx's Medication Instructions Recorded simvastatin 20 mg tablet 20 mg PO QPM #90 tabs 07/24/24 montelukast 10 mg tablet 10 mg PO DAILY #90 tabs 09/11/24 omeprazole 20 mg capsule,delayed 20 mg PO QPM #90 caps 10/29/24 release albuterol sulfate 90 mcg/actuation 2 puff inhalation Q4H PRN 12/28/24 aerosol inhaler shortness of breath or wheezing #3 Inhalers ipratropium bromide 21 mcg (0.03 2 spray intranasal DAILY #90 mL 02/08/ %) nasal spray losartan 50 mg tablet (Cozaar) 50 mg PO QAM #90 tabs 02/12/25 benralizumab 30 mg/mL subcutaneous 30 mg subcut .COMPLEX #1 mL 02/18/25 syringe (Fasenra) fluticasone 500 mcg-salmeterol 50 1 inh inhalation BID #180 ea 03/05/25 mcg/dose blistr powdr for inhalation (Wixela Inhub) tiotropium bromide 1.25 2 puff inhalation DAILY #3 Inhalers 03/20/25 mcg/actuation mist for inhalation (Spiriva Respimat) Results & Data (ED) Vital Signs Vital Signs - 24 hr 07/27/25 07:38 07/27/25 07:55 07/27/25 08:00 Temperature 37.2 C Temperature Source Oral Pulse Rate 112 H 112 H 104 H Pulse Rate from SpO2 Sensor 104 H Pulse Rhythm Regular Respiratory Rate 24 24 19 Respiratory Effort / Characteristics Non-Labored Respiratory Depth Normal Respiratory Pattern Regular Blood Pressure 132/72 109/66 Blood Pressure Mean 92 90 Pulse Oximetry 94 94 94 Oxygen Delivery Method Room Air Room Air Sepsis Recent Fever Within 48 Hours Yes Sepsis New/Unexplained Change in Mental Status No Sepsis Action Taken by Nursing Physician Notified 07/27/25 08:19 07/27/25 09:00 07/27/25 09:30 Temperature Temperature Source Pulse Rate 103 H 97 H 98 H Pulse Rate from SpO2 Sensor 98 H 99 H Pulse Rhythm Respiratory Rate 25 H 21 Respiratory Effort / Characteristics Respiratory Depth Respiratory Pattern Blood Pressure 106/60 106/59 L Blood Pressure Mean 81 72 Pulse Oximetry 92 92 Oxygen Delivery Method Sepsis Recent Fever Within 48 Hours Sepsis New/Unexplained Change in Mental Status Sepsis Action Taken by Retirement Medications Current Medication List: was personally reviewed by me Laboratory Data Attestation: I reviewed the patient's lab results. 07/27/25 08:37 07/27/25 07:48 Lab Results 07/27/25 07/27/25 07/27/25 Range/Units 07:48 08:37 09:49 WBC Cancelled 13.36 H RBC Cancelled 4.26 Hgb Cancelled 12.2 Hct Cancelled 36.9 L MCV Cancelled 86.6 MCH Cancelled 28.6 MCHC Cancelled 33.1 RDW Std Deviation Cancelled 41.7 RDW Coeff of Daren Cancelled 13.2 Plt Count Cancelled 187 MPV Cancelled 8.7 L Immature Gran % (Auto) Cancelled 0.4 Neut % (Auto) Cancelled 83.6 Lymph % (Auto) Cancelled 5.2 Bowie % (Auto) Cancelled 10.7 Eos % (Auto) Cancelled 0.0 Baso % (Auto) Cancelled 0.1 Neut # (Auto) Cancelled 11.17 H Lymph # (Auto) Cancelled 0.69 L Bowie # (Auto) Cancelled 1.43 H Eos # (Auto) Cancelled 0.00 Baso # (Auto) Cancelled 0.01 Immature Gran # (Auto) Cancelled 0.06 Absolute Nucleated RBC Cancelled Nucleated RBC % (auto) Cancelled Neutrophils % (Manual) Cancelled Band Neutrophils % Cancelled Lymphocytes % (Manual) Cancelled Prolymphocyte % Cancelled Reactive Lymphs % (Man) Cancelled Monocytes % (Manual) Cancelled Eosinophils % (Manual) Cancelled Basophils % (Manual) Cancelled Metamyelocytes % (Man) Cancelled Myelocytes % (Man) Cancelled Promyelocytes % (Man) Cancelled Blast Cells % (Manual) Cancelled Plasma Cell % (Manual) Cancelled Other Cells % Cancelled Nucleated RBC % Cancelled Neutrophils # (Manual) Cancelled Band Neutrophils # Cancelled Total Absolute Neuts Cancelled Lymphocytes # (Manual) Cancelled Prolymphocyte # Cancelled Reactive Lymphs # Cancelled Total Abs Lymphocytes Cancelled Monocytes # (Manual) Cancelled Eosinophils # (Manual) Cancelled Basophils # (Manual) Cancelled Metamyelocytes # (Man) Cancelled Myelocytes # (Manual) Cancelled Promyelocytes # (Man) Cancelled Blast Cells # (Man) Cancelled Plasma Cell # (Manual) Cancelled Other Cells # Cancelled Nucleated RBCs # (Man) Cancelled Hypersegmented Neuts Cancelled Hyposegmented Neuts Cancelled Hypogranular Neuts Cancelled Large Granular Lymphs Cancelled # Lrg Granular Lymphs Cancelled Hairy Cells Cancelled Smudge Cells Cancelled Toxic Granulation Cancelled Toxic Vacuolation Cancelled Dohle Bodies Cancelled Sylvester Rods Cancelled Platelet Estimate Cancelled Hypogranular Platelets Cancelled Giant Platelets Cancelled Platelet Satelliting Cancelled RBC Morphology Cancelled Polychromasia Cancelled Hypochromasia Cancelled Poikilocytosis Cancelled Basophilic Stippling Cancelled Anisocytosis Cancelled Microcytosis Cancelled Macrocytosis Cancelled Spherocytes Cancelled Pappenheimer Bodies Cancelled Sickle Cells Cancelled Target Cells Cancelled Tear Drop Cells Cancelled Ovalocytes Cancelled Stomatocytes Cancelled Mendez-Naples Bodies Cancelled Echinocytes Cancelled Acanthocytes (Spur) Cancelled Rouleaux Cancelled RBC Agglutinates Cancelled Schistocytes Cancelled Sezary Cell Cancelled Sodium 135 L (136-145) mmol/L Potassium 4.1 (3.5-5.1) mmol/L Chloride 103 (98-107) mmol/L Carbon Dioxide 22 (21-32) mmol/L Anion Gap 10 (3-11) BUN 22 (6-23) mg/dl Creatinine 0.57 L (0.6-1.2) mg/dl Est Cr Clr Drug Dosing 72.2 ml/min eGFR 89.00 BUN/Creatinine Ratio 38.6 H (10-20) Glucose 121 H (70-99(Fasting)) mg/dl Lactate 1.1 (0.4-2.0) mmol/L Calcium 9.2 (8.6-10.3) mg/dl Magnesium 1.6 L (1.7-2.4) mg/dl Total Bilirubin 0.6 (0.2-1.0) mg/dl AST 27 (13-39) U/L ALT 20 (7-52) U/L Alkaline Phosphatase 99 (34-104) U/L Total Protein 6.7 (6.0-8.3) gm/dl Albumin 4.3 (3.4-5.0) gm/dl Globulin 2.4 L (2.5-4.0) gm/dl Albumin/Globulin Ratio 1.8 (0.9-2) Procalcitonin 2.08 H (0-0.5) ng/ml Adenovirus (PCR) Not Detected (NotDetected) B. pertussis DNA (PCR) Not Detected (NotDetected) B.parapertussis DNA PCR Not Detected (NotDetected) C. pneumoniae DNA (PCR) Not Detected (NotDetected) Coronavirus OC43 (PCR) Not Detected (NotDetected) Coronavirus HKU1 (PCR) Not Detected (NotDetected) Coronavirus 229E (PCR) Not Detected (NotDetected) SARS-CoV-2 (PCR) Not Detected (NotDetected) Coronavirus NL63 (PCR) Not Detected (NotDetected) Human Metapneumovir PCR Not Detected (NotDetected) Influenza Type A (PCR) Not Detected (NotDetected) Influenza Type B (PCR) Not Detected (NotDetected) M. pneumoniae (PCR) Not Detected (NotDetected) Parainfluenza 1 (PCR) Not Detected (NotDetected) Parainfluenza 2 (PCR) Not Detected (NotDetected) Parainfluenza 3 (PCR) Not Detected (NotDetected) Parainfluenza 4 (PCR) Not Detected (NotDetected) RSV (PCR) Not Detected (NotDetected) Entero/Rhino (PCR) Not Detected (NotDetected) Blood Parasites ID Cancelled Administered Medications Enoxaparin Sodium (Enoxaparin Inj 40 Mg/0.4 Ml Syr) 40 mg SQ DAILY [facility] Stop: 08/26/25 12:59 Last Admin: 07/27/25 13:21 Dose: 40 mg Documented By: HEAVENLY Ceftriaxone Sodium (Rocephin) 2,000 mg in 50 mls @ 100 mls/hr IV Q24H JEFFREY; Protocol Stop: 08/01/25 12:59 Last Infusion: 07/27/25 13:17 Dose: Infused Documented By: Admin: 07/27/25 12:13 Dose: 100 mls/hr Documented By: HEAVENLY Azithromycin (Zithromax) 500 mg in 255 mls @ 127.5 mls/hr IV Q24H JEFFREY Stop: 07/30/25 11:59 Last Admin: 07/27/25 13:18 Dose: 127.5 mls/hr Documented By: HEAVENLY Discontinued Medications Acetaminophen (Acetaminophen 500 Mg Tab) 1,000 mg PO NOW STA Stop: 07/27/25 07:56 Last Admin: 07/27/25 08:16 Dose: 1,000 mg Documented By: SHAY Sodium Chloride (Nss) 500 mls @ 999 mls/hr IV .Q31M JEFFREY Stop: 07/27/25 08:30 Last Infusion: 07/27/25 08:52 Dose: Infused Documented By: Admin: 07/27/25 08:16 Dose: 999 mls/hr Documented By: SHAY Cefepime HCl (Maxipime 2000mg) 2,000 mg in 20 mls @ 5 mls/min IV NOW STA; Protocol Stop: 07/27/25 09:41 Last Admin: 07/27/25 10:35 Dose: 5 mls/min Documented By: HUYEN Sodium Chloride (Nss) 1,000 mls @ 999 mls/hr IV .Q1H1M ONE Stop: 07/27/25 10:38 Last Infusion: 07/27/25 11:55 Dose: Infused Documented By: Admin: 07/27/25 10:11 Dose: 999 mls/hr Documented By: HUYEN Imaging Data Radiologist's Impression: Chest X-Ray 07/27/25 07:55 Clinical History: Weakness Technique: A frontal view of the chest was obtained Findings: There is right lung base atelectasis. The heart size is at the upper limit of normal. No pleural effusion or pneumothorax is seen. There is suspected mild pulmonary vascular congestion No fracture is noted. No foreign body is seen Impression: 1. Pulmonary vascular congestion 2. Right lung base atelectasis Electronically signed by Yaya Muñiz 07-27-2025 08:31 AM Discharge Plan Visit Data Chief Complaint: Illness Stated Complaint: ILLNESS, HYPOXIA ED Provider: Jonathan Duran Discharge Problem: CAP (community acquired pneumonia), Fever, Myalgia Patient Disposition: Admitted As Inpatient Condition: Good Discharge Problem: CAP (community acquired pneumonia) Qualifiers: Laterality: unspecified laterality Qualified Code(s): J18.9 - Pneumonia, unspecified organism Fever Qualifiers: Fever type: unspecified Qualified Code(s): R50.9 - Fever, unspecified
[2025-07-27] MEDS: SODIUM CHLORIDE 0.9% 500 ML IV SCH (08:16)
[2025-07-27] MEDS: ACETAMINOPHEN 500 MG TAB PO STA (08:16)
[2025-07-27 08:25] LABS: Alanine Aminotransferase 20.0 U/L (7-52); Albumin Globulin Ratio 1.8 (0.9-2); Albumin Level 4.3 gm/dl (3.4-5.0); Alkaline Phosphatase 99.0 U/L (34-104); Anion Gap 10.0 (3-11); Bilirubin,Total 0.6 mg/dl (0.2-1.0); Blood Urea Nitrogen 22.0 mg/dl (6-23); Calcium 9.2 mg/dl (8.6-10.3); Carbon Dioxide 22.0 mmol/L (21-32); Chloride 103.0 mmol/L (98-107); Creatinine Clr Calc Pharmacy 72.2 ml/min; Globulin 2.4 gm/dl (2.5-4.0); Glucose 121.0 mg/dl (70-99(Fasting)); Magnesium 1.6 mg/dl (1.7-2.4); Potassium 4.1 mmol/L (3.5-5.1); Sodium 135.0 mmol/L (136-145); Total Protein 6.7 gm/dl (6.0-8.3)
--- NOTE | 2025-07-27 08:32 | XRay Report ---
Clinical History: Weakness Technique: A frontal view of the chest was obtained Findings: There is right lung base atelectasis. The heart size is at the upper limit of normal. No pleural effusion or pneumothorax is seen. There is suspected mild pulmonary vascular congestion No fracture is noted. No foreign body is seen Impression: 1. Pulmonary vascular congestion 2. Right lung base atelectasis Electronically signed by Yaya Muñiz 07-27-2025 08:31 AM
[2025-07-27 08:57] LABS: Hematocrit (blood only) 36.9 % (37.0-47.0); Hemoglobin 12.2 g/dl (12.0-16.0); Immature Granulocytes # (auto) 0.06 K/uL (0.01-0.20); Immature Granulocytes % (auto) 0.4 %; Mean Corpuscular Hemoglobin 28.6 pg (25.0-34.0); Mean Corpuscular Volume 86.6 fL (80.0-100.0); Platelet Count 187 K/uL (130-400); RDW Standard Deviation 41.7 fL (36.4-46.3); Red Blood Count 4.26 M/uL (4.20-5.40); White Blood Count 13.36 K/ul (4.8-10.8)
[2025-07-27 09:03] LABS: Chlamydia pneumoniae PCR Not Detected (NotDetected); Coronavirus 229E PCR Not Detected (NotDetected); Coronavirus CoV-2 (COVID19)PCR Not Detected (NotDetected); Coronavirus HKU1 PCR Not Detected (NotDetected); Coronavirus NL63 PCR Not Detected (NotDetected); Coronavirus OC43PCR Not Detected (NotDetected); Human Metapneumovirus PCR Not Detected (NotDetected); Parainfluenza Virus 1 PCR Not Detected (NotDetected); Parainfluenza Virus 2 PCR Not Detected (NotDetected); Parainfluenza Virus 3 PCR Not Detected (NotDetected); Parainfluenza Virus 4 PCR Not Detected (NotDetected); Respiratory Syncytial VirusPCR Not Detected (NotDetected); Rhinovirus/Enterovirus PCR Not Detected (NotDetected)
[2025-07-27] MEDS: SODIUM CHLORIDE 0.9% 1,000 ML IV ONE (10:11)
--- NOTE | 2025-07-27 10:17 | History & Physical Report ---
Date of Service July 27, 2025 Assessment & Plan (1) Community acquired pneumonia: (2) Neutrophilic leukocytosis: (3) Immunocompromised state due to drug therapy: (4) Malaise and fatigue: (5) Hypomagnesemia: Plan In summary this is an 84-year-old female who presents with concern for community-acquired pneumonia #CAP // Moderate persistent asthma // Immunosuppressed in the setting of biologic drug therapy for RA Patient presents with fever, tachypnea, focal crackles; PSI score 130 points with risk class IV; found to have leukocytosis in addition to procalcitonin 2.08; blood cultures pending at this time, patient is without a productive cough, unable to obtain a respiratory sputum sample at this time; portable chest film was obtained in the emergency department, poor quality but with changes concerning for the potential of early pneumonic process; short score 1, low risk for MRSA pneumonia Follow vital signs every 6 hours for 24 hours then transition to every shift when vital signs stable Activity as tolerated Incentive spirometry and flutter valve every hour while awake Maintain oxygen saturation greater than 92% Viral swabs for influenza, RSV, COVID-19 unremarkable Reassess AP and lateral chest film in the morning on 07/28 Start ceftriaxone 2 g IV daily through 07/31 Start azithromycin 500 mg IV daily through 07/29 - Continue home inhaler therapies Follow daily CBC with manual differential, renal function panel #Hypomagnesemic Noted to be hypomagnesemic in the emergency department; replaced, reassess on 07/28 History of Present Illness Chief Complaint: Shortness of breath with fever Primary Care Provider: Renetta Blancas DO Ms. Persaud is a an 84-year-old female whose active medical conditions include moderate persistent asthma, sensorineural hearing loss, IgG deficiency, rheumatoid arthritis among other chronic medical conditions who presented to [facility] by BLS on 07/27 due to progressive chills, rigors, and malaise/fatigue that progressed overnight on 07/26. The patient denies any recent antibiotic courses, recent ill exposures. She has a chronic cough related to their asthma which has not recently worsened nor changed; as remained unproductive. She did recently have an influenza immunization on 07/24 that was uncomplicated. She has not in the past 24 hours required increased use of any rescue inhalers. She further denies any palpitations, pleuritic chest pain, orthopnea, platypnea, lower extremity edema, chest pain, exertional dyspnea. Allergies Allergy/AdvReac Type Severity Reaction Status Date / Time adhesive Allergy Mild REDNESS, Verified 07/27/25 10:11 RASH amoxicillin AdvReac Mild PT UNSURE Verified 07/27/25 10:11 REACTION, ? itchy Perfumes Allergy Severe SOB Uncoded 07/27/25 10:11 DUST Allergy Unknown Sneezing Uncoded 07/27/25 10:11 Home Medications Medication Instructions Recorded Confirmed Type calcium 500 mg (as 2 tab PO QAM 08/05/20 07/27/25 History carbonate)-vitamin D3 5 mcg (200 unit) tablet (Calcium 500 + D) cetirizine 10 mg tablet 10 mg PO DAILY 01/14/23 07/27/25 History zoledronic acid 5 mg/100 mL in 1 ea IV .UD 09/30/23 07/27/25 History mannitol 5 %-water intravenous piggybck (Reclast) simvastatin 20 mg tablet 20 mg PO QPM #90 tabs 07/24/24 07/27/25 Rx montelukast 10 mg tablet 10 mg PO DAILY #90 tabs 09/11/24 07/27/25 Rx antiarthritic combination no.2 900 2 mg PO DAILY 10/23/24 07/27/25 History mg tablet (glucosamine-chondroitin) nctirpplltzy-Vs-ljei-minerals 18 1 tab PO DAILY 10/23/24 07/27/25 History mg-0.4 mg tablet omega 9-oll-wsm-fish oil 1,200 mg 1 cap PO DAILY 10/23/24 07/27/25 History (144 mg-216 mg) capsule (Fish Oil) vitamin A 2,400 mcg capsule 2,400 mcg PO DAILY 10/23/24 07/27/25 History omeprazole 20 mg capsule,delayed 20 mg PO QPM #90 caps 10/29/24 07/27/25 Rx release mometasone 50 mcg/actuation nasal 1 spray intranasal BID 12/20/24 07/27/25 History spray (Nasonex 24hr Allergy) albuterol sulfate 90 mcg/actuation 2 puff inhalation Q4H PRN 12/28/24 07/27/25 Rx aerosol inhaler shortness of breath or wheezing #3 Inhalers ipratropium bromide 21 mcg (0.03 2 spray intranasal DAILY #90 mL 02/08/25 07/27/25 Rx %) nasal spray losartan 50 mg tablet (Cozaar) 50 mg PO QAM #90 tabs 02/12/25 07/27/25 Rx benralizumab 30 mg/mL subcutaneous 30 mg subcut .COMPLEX #1 mL 02/18/25 07/27/25 Rx syringe (Fasenra) fluticasone 500 mcg-salmeterol 50 1 inh inhalation BID #180 ea 03/05/25 07/27/25 Rx mcg/dose blistr powdr for inhalation (Wixela Inhub) tiotropium bromide 1.25 2 puff inhalation DAILY #3 Inhalers 03/20/25 07/27/25 Rx mcg/actuation mist for inhalation (Spiriva Respimat) clotrimazole 1 %-betamethasone 0 pkg topical UD 07/27/25 07/27/25 History 0.05 % cream-zinc ox 20 % paste topical Past Med/Surg History Problem List (Updated 07/27/25 @ 10:16 by Christopher Fountain DO) Hypomagnesemia Neutrophilic leukocytosis Malaise and fatigue Immunocompromised state due to drug therapy Community acquired pneumonia Nasal polyps Intertrigo Concern about memory Allergic rhinitis with postnasal drip Hypersomnia Peripheral eosinophilia 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 Polymyalgia rheumatica Chronic sinusitis, unspecified Meningioma Asthma, moderate persistent Bilateral cataracts Radial scar of breast Colon polyp (~01/13/22) Sensorineural hearing loss (SNHL) of both ears Poorer WRS in left ear Impacted cerumen of left ear Hypertension Hyperlipidemia Nasal polyposis Selective deficiency of IgG GERD (gastroesophageal reflux disease) controlled Right knee DJD (Acute 07/18/14) Medical History Brain tumor (benign) Asthmatic bronchitis Family history of coronary arteriosclerosis Hyperglycemia History of colon polyps Family history of reaction to anesthesia SOME MEMBERS OF FAMILY - N/V , DIZZINESS ? - UNKNOWN FURTHER DETAILS History of colon polyps ? PT NOT SURE - UPCOMING COLONOSCOPY JANUARY 2022 Back pain ACHE WITH EXTENDED STANDING OR WALKING PERIODS Hyperlipidemia HTN (hypertension) Asthma well controlled LBBB (left bundle branch block) chronic dating back to 2013 DSE PT NOT SURE Surgical History H/O right breast biopsy H/O right inguinal hernia repair (12/15/21) Needle localization right breast biopsy. Dr. Horton 12/15/2021 H/O wrist surgery 02/2020 Hx of tonsillectomy Hx of breast lump removal 1985 left History of nasal surgery B/L endoscopic sinus surgery: 12/12/15: Grade view 1, MAC#3, ETT 7.0 at [facility] History of right knee joint replacement History of bowel resection PERFORATED BOWEL FROM COLONOSCOPY 08/1996 History of colonoscopy (02/2022) Family History Brother Family history of diabetes mellitus Heart disease Asthma Diabetes Mother Asthma Father Colon cancer Sister Heart disease Uncle Colon cancer Prostate cancer Grandmother (Paternal) Breast cancer Family/Other Breast cancer Other Allergies Hearing loss Hypertension No family history of bleeding disorder Denies family history of Ovarian cancer Myocardial infarction Cancer Stroke Social History Smoking Status: Never smoker Second Hand Exposure: No; Do You Dip or Chew Tobacco: No; Hx Alcohol Use: No Hx Substance Use: No Preferred Language: Samoan Communication Ability: Effective Visual Impairment: No Limitations Hearing Ability: Hard of Hearing Patient Resource Coordinator Required: No Beliefs That Will Affect Care: None marital status: Current Living Situation: Alone current occupational status: retired Feels Safe at Home: Yes Childhood Exposure to Second-Hand Smoke: Yes Dental Care, Regularly: Yes Physical Activity Frequency: 1-2 Times per Week Seatbelt Use: always Sunscreen Use: No Assistive Devices: Cane and Walker Review of Systems Review of Systems: Review of cardiovascular, pulmonary, constitutional, gastrointestinal, marialuisa rologic systems was unremarkable except for pertinent positive and negative findings described in the HPI above Physical Exam Physical Exam: General: Elderly female in no acute distress Vital Signs: Reviewed HEENT: Moist mucous membranes Pulmonary: Symmetric chest wall excursion without restriction; focal crackles present in the right basilar posterior lobe without egophony; remaining lung redmond are clear to auscultation with the rare occasional end expiratory wheeze Cardiovascular: Regular rate and rhythm with grade 2/6 systolic murmur best heard in the left second intercostal space parasternally; no rubs or gallops; occasional splitting of S1 with normal S2; bilateral radial and posterior tibial pulse 2+ without notable lower extremity edema Neurologic: Cranial nerves II to XII grossly intact with diminished hearing (patient was without their usual hearing aids at the time of my exam) no focal neurologic deficits noted on exam Results & Data Results & Data Vital Signs (Past 12 Hours) Vital Signs Temp Pulse Resp BP Pulse Ox O2 Del Method 07/27/25 09:30 98 H 21 106/59 L 92 07/27/25 09:00 97 H 25 H 106/60 92 07/27/25 08:19 103 H 07/27/25 08:00 104 H 19 109/66 94 07/27/25 07:55 112 H 24 94 Room Air 07/27/25 07:38 37.2 C 112 H 24 132/72 94 Room Air Laboratory Results Leukocytosis of 13.36 with a neutrophilic predominance Hyponatremic at 135, stable from previous measures; magnesium 1.6; diminished globulin protein measured 2.4, consistent from previous assessments Procalcitonin 2.08 Lactic acid 1.1 Diagnostic Findings Portable chest film reviewed as well as radiologist impression; poor image quality, there is evidence of congestion versus atelectasis versus an early infectious process in the left lower lobe as well as in the retrocardiac space; similar atelectatic change in the right lower lobe; no evidence of fluid overload ECG Additional Comments: Tachycardic rate with regular RR interval; severe left axis deviation, poor R wave progression in the precordial leads; left bundle branch block; no ST segment deviations noted no other ischemic changes Code Status & VTE Plan Code Status Full code VTE Prophylaxis Plan VTE Prophylaxis will be ordered: Yes PG Care Time/CCT Total # of Minutes Spent Total Time Spent with Patient: Total time spent is greater than 50% in coordination of care (as documented) at patient's floor/unit and/or counseling patient: Coding Level of Care Code 86176 INT INP/OBS CARE 2/55MIN Diagnoses Community acquired pneumonia of left lower lobe of lung J18.9 Laterality: left Lung location: lower lobe of lung Neutrophilic leukocytosis D72.828 Immunocompromised state due to drug therapy D84.821 Malaise and fatigue R53.81; R53.83 Hypomagnesemia E83.42 (1) Community acquired pneumonia Laterality: left Lung location: lower lobe of lung Qualified Code(s): J18.9 - Pneumonia, unspecified organism
[2025-07-27 10:19] LABS: Appearance Urine Clear (Clear); Glucose Urine UA Negative (Negative)
[2025-07-27] MEDS: CEFEPIME 2000MG 2,000 MG/20 ML SYR IV STA (10:35)
[2025-07-27] MEDS ORDERED: ALBUTEROL HFA 8 GM INHALER INH PRN (11:29)
[2025-07-27] MEDS: cefTRIAXone SODIUM 2,000 MG/50 ML BAG IV SCH (12:13)
[2025-07-27] MEDS: AZITHROMYCIN 500 MG/255 ML BAG IV SCH (13:18)
[2025-07-27] MEDS: ENOXAPARIN INJ 40 MG/0.4 ML SYR SQ SCH (13:21)
[2025-07-27] MEDS: ACETAMINOPHEN 325 MG TAB PO PRN (19:45)
[2025-07-27] MEDS: SIMVASTATIN 20 MG TAB PO SCH (21:17)
[2025-07-28 02:57] LABS: A calco-baum cmplx NotReported Not Detected (NotDetected); Bact fragilis Not Reported Not Detected (NotDetected); Blood Culture Id Panel See PCR Comment (NotDetected); C auris Not Reported Not Detected (NotDetected); CTX-M Resistant Gene Not Detected (NotDetected); Calbicans Not Reported Not Detected (NotDetected); Candida glabrata Not Reported Not Detected (NotDetected); Candida krusei Not Reported Not Detected (NotDetected); Cneoformans/gatti Not Reported Not Detected (NotDetected); Cparapsilosis Not Reported Not Detected (NotDetected); Ctropicalis Not Reported Not Detected (NotDetected); E cloacae compx Not Reported Not Detected (NotDetected); Efaecalis Not Reported Not Detected (NotDetected); Efaecium Not Reported Not Detected (NotDetected); Enterobacterales Not Reported DETECTED (NotDetected); Escherichia coli Not Reported Not Detected (NotDetected); H influenzae Not Reported Not Detected (NotDetected); IMP Resistant Gene Not Detected (NotDetected); K aerogenes Not Reported Not Detected (NotDetected); KPC Resistant Gene Not Detected (NotDetected); Koxytoca Not Reported Not Detected (NotDetected); Kpneumoniae grp Not Reported Not Detected (NotDetected); Lmonocyt Not Reported Not Detected (NotDetected); N meningitidis Not Reported Not Detected (NotDetected); NDM Resistant Gene Not Detected (NotDetected); OXA 48 Like Resistant Gene Not Detected (NotDetected); P aeruginosa Not Reported Not Detected (NotDetected); Proteus spp Not Reported Not Detected (NotDetected); Salmonella spp Not Reported Not Detected (NotDetected); Staph lugdunensis Not Reported Not Detected (NotDetected); Staph spp. Not Reported Not Detected (NotDetected); Staphaureus Not Reported Not Detected (NotDetected); Staphepi Not Reported Not Detected (NotDetected); Stenmaltophilia Not Reported Not Detected (NotDetected); Strep agal(GrpB) Not Reported Not Detected (NotDetected); Strep pneum Not Reported Not Detected (NotDetected); Strep pyog (GrpA) Not Reported Not Detected (NotDetected); Strep spp Not Reported Not Detected (NotDetected); VIM Resistant Gene Not Detected (NotDetected)
[2025-07-28 03:02] LABS: Enterobacterales DETECTED (NotDetected)
[2025-07-28 06:08] LABS: Hematocrit (blood only) 36.1 % (37.0-47.0); Hemoglobin 12.0 g/dl (12.0-16.0); Immature Granulocytes # (auto) 0.02 K/uL (0.01-0.20); Immature Granulocytes % (auto) 0.3 %; Mean Corpuscular Hemoglobin 29.0 pg (25.0-34.0); Mean Corpuscular Volume 87.2 fL (80.0-100.0); Platelet Count 162 K/uL (130-400); RDW Standard Deviation 42.1 fL (36.4-46.3); Red Blood Count 4.14 M/uL (4.20-5.40); White Blood Count 6.14 K/ul (4.8-10.8)
[2025-07-28 06:27] LABS: Albumin Level 3.7 gm/dl (3.4-5.0); Anion Gap 7.0 (3-11); Blood Urea Nitrogen 11.0 mg/dl (6-23); Calcium 8.5 mg/dl (8.6-10.3); Carbon Dioxide 23.0 mmol/L (21-32); Chloride 107.0 mmol/L (98-107); Creatinine Clr Calc Pharmacy 79.2 ml/min; Glucose 94.0 mg/dl (70-99(Fasting)); Magnesium 1.9 mg/dl (1.7-2.4); Potassium 3.7 mmol/L (3.5-5.1); Sodium 137.0 mmol/L (136-145)
--- NOTE | 2025-07-28 07:07 | Electrocardiogram Report ---
Test Reason : Blood Pressure : */* mmHG Vent. Rate : 108 BPM Atrial Rate : 108 BPM P-R Int : 174 ms QRS Dur : 138 ms QT Int : 372 ms P-R-T Axes : 24 -45 110 degrees QTcB Int : 498 ms Sinus tachycardia Left axis deviation Left bundle branch block Abnormal ECG When compared with ECG of 16-Oct-2024 15:39, No significant change was found Confirmed by Rodney Ferraro ([id number]) on 07/28/2025 7:06:54 AM Referred By: Confirmed By: Rodney Ferraro
--- NOTE | 2025-07-28 07:32 | Hospitalist Progress Note ---
Date of Service July 28, 2025 Assessment & Plan (1) Community acquired pneumonia: (2) Neutrophilic leukocytosis: (3) Immunocompromised state due to drug therapy: (4) Malaise and fatigue: (5) Hypomagnesemia: Plan In summary this is an 84-year-old female who presents with concern for community-acquired pneumonia #CAP // Moderate persistent asthma // Immunosuppressed in the setting of biologic drug therapy for RA Patient presented with fever, tachypnea, focal crackles; PSI score 130 points with risk class IV; found to have leukocytosis in addition to procalcitonin 2.08; blood cultures with GNR growth in 1 of 4 bottles; patient remains without a productive cough, unable to obtain a respiratory sputum sample at this time; reassessment with PA and Lateral chest films on 07/28 with questionable retrocardiac pneumonia; Shorr score 1, low risk for MRSA pneumonia Assess VS every shift Activity as tolerated Incentive spirometry and flutter valve every hour while awake Maintain oxygen saturation greater than 92% Viral swabs for influenza, RSV, COVID-19 unremarkable Continue ceftriaxone 2 g IV daily through 07/31 Continue azithromycin 500 mg IV daily through 07/29 - Continue home inhaler therapies Follow daily CBC with manual differential, renal function panel #Hypomagnesemic Resolved Admission and Anticipated Discharge Date Admission Date: July 27, 2025 Subjective Ms. Persaud is a an 84-year-old female whose active medical conditions include moderate persistent asthma, sensorineural hearing loss, IgG deficiency, rheumatoid arthritis among other chronic medical conditions who presented to [facility] by BLS on 07/27 due to progressive chills, rigors, and malaise/fatigue that progressed overnight on 07/26. No acute overnight events Review of Systems Review of Systems: Review of cardiovascular, pulmonary, constitutional, gastrointestinal, neurologic systems was unremarkable except for pertinent positive and negative findings described in the HPI above Physical Exam Physical Exam: General: Elderly female in no acute distress Vital Signs: Reviewed HEENT: Moist mucous membranes Pulmonary: Symmetric chest wall excursion without restriction; focal crackles present in the right basilar posterior lobe without egophony; remaining lung redmond are clear to auscultation with the rare occasional end expiratory wheeze Cardiovascular: Regular rate and rhythm with grade 2/6 systolic murmur best heard in the left second intercostal space parasternally; no rubs or gallops; occasional splitting of S1 with normal S2; bilateral radial and posterior tibial pulse 2+ without notable lower extremity edema Neurologic: Cranial nerves II to XII grossly intact with diminished hearing (patient was without their usual hearing aids at the time of my exam) no focal neurologic deficits noted on exam Results & Data Results & Data Vital Signs (Past 12 Hours) Vital Signs Temp Pulse Resp BP BP Pulse Ox O2 Del Method 07/28/25 03:35 37 C 74 16 135/77 95 Room Air 07/27/25 20:10 Room Air 07/27/25 19:50 37.2 C 85 18 116/62 95 Room Air Laboratory Results Blood cultures with GNR in 1 of 4 bottles Diagnostic Findings PA and lateral chest film with questionable retrocardiac fullness concerning for pneumonia PG Care Time/CCT Total # of Minutes Spent Total Time Spent with Patient: Total time spent is greater than 50% in coordination of care (as documented) at patient's floor/unit and/or counseling patient: Coding Level of Care Code 63198 SUB INP/OBS CARE MIN Diagnoses Community acquired pneumonia of left lower lobe of lung J18.9 Laterality: left Lung location: lower lobe of lung Neutrophilic leukocytosis D72.828 Immunocompromised state due to drug therapy D84.821 Malaise and fatigue R53.81; R53.83 Hypomagnesemia E83.42 (1) Community acquired pneumonia Laterality: left Lung location: lower lobe of lung Qualified Code(s): J18.9 - Pneumonia, unspecified organism
[2025-07-28] MEDS: LOSARTAN POTASSIUM 50 MG TAB PO SCH (08:30)
[2025-07-28] MEDS: MONTELUKAST SODIUM 10 MG TABLET PO SCH (08:31)
[2025-07-28] MEDS: UMECLIDINIUM BROMIDE 62.5MCG/BLISTER 7 PUFFS/INHALER INH SCH (08:31)
[2025-07-28] MEDS: FLUTICASONE/VILANTEROL 200/25MCG 14 PUFFS/INHALER INH SCH (08:31)
--- NOTE | 2025-07-28 09:02 | XRay Report ---
HISTORY: Shortness of breath. TECHNIQUE: PA and lateral views of the chest. COMPARISON: Chest radiograph dated 07/27/2025. FINDINGS: Linear right basilar opacity favoring atelectasis or scarring. Elevated right hemidiaphragm. Small focal opacity overlying the lower spine on the lateral projection is nonspecific and could represent pneumonia or atelectasis.No pneumothorax or effusion. Normal heart size. Left-sided aortic arch. Midline trachea. Mild degenerative changes of the spine. IMPRESSION: * Small focal opacity overlying the lower thoracic spine on the lateral projection could represent pneumonia. * Elevated right hemidiaphragm with adjacent linear right basilar opacity favoring atelectasis. * Normal heart size. Electronically signed by Miguel Nunez 07-28-2025 09:01 AM
[2025-07-28] MEDS: CEFEPIME 2000MG 2,000 MG/20 ML SYR IV SCH (15:46)
[2025-07-29 07:14] LABS: Hematocrit (blood only) 35.4 % (37.0-47.0); Hemoglobin 12.2 g/dl (12.0-16.0); Immature Granulocytes # (auto) 0.01 K/uL (0.01-0.20); Immature Granulocytes % (auto) 0.2 %; Mean Corpuscular Hemoglobin 29.6 pg (25.0-34.0); Mean Corpuscular Volume 85.9 fL (80.0-100.0); Platelet Count 178 K/uL (130-400); RDW Standard Deviation 40.9 fL (36.4-46.3); Red Blood Count 4.12 M/uL (4.20-5.40); White Blood Count 5.20 K/ul (4.8-10.8)
[2025-07-29 07:32] LABS: Albumin Level 3.7 gm/dl (3.4-5.0); Anion Gap 7.0 (3-11); Blood Urea Nitrogen 12.0 mg/dl (6-23); Calcium 8.5 mg/dl (8.6-10.3); Carbon Dioxide 24.0 mmol/L (21-32); Chloride 106.0 mmol/L (98-107); Creatinine Clr Calc Pharmacy 60.6 ml/min; Glucose 107.0 mg/dl (70-99(Fasting)); Magnesium 2.1 mg/dl (1.7-2.4); Potassium 3.8 mmol/L (3.5-5.1); Sodium 137.0 mmol/L (136-145)
--- NOTE | 2025-07-29 07:37 | Hospitalist Progress Note ---
Date of Service July 29, 2025 Assessment & Plan (1) Pneumonia due to gram-negative bacteria: (2) Community acquired pneumonia: (3) Neutrophilic leukocytosis: (4) Immunocompromised state due to drug therapy: (5) Malaise and fatigue: (6) Hypomagnesemia: Plan In summary this is an 84-year-old female who presents with concern for community-acquired pneumonia #CAP due to gram negative violette// Moderate persistent asthma // Immunosuppressed in the setting of biologic drug therapy for RA Patient presented with fever, tachypnea, focal crackles; PSI score 130 points with risk class IV; found to have leukocytosis in addition to procalcitonin 2.08; blood cultures with GNR growth in one aerobic and one anaerobic bottle, biofire with Enterobacterales PCR; patient remains without a productive cough, unable to obtain a respiratory sputum sample at this time; reassessment with PA and Lateral chest films on 07/28 with questionable retrocardiac pneumonia; Shorr score 1, low risk for MRSA pneumonia; patient at presentation met SIRS criteria however their clinical evaluation is not consistent with sepsis given the lack of clinical evidence of infection and improvement without the need for intervention that sepsis requires Assess VS every shift Activity as tolerated Incentive spirometry and flutter valve every hour while awake Maintain oxygen saturation greater than 92% Viral swabs for influenza, RSV, COVID-19 unremarkable Discontinued ceftriaxone and azithromycin 07/28 due to blood culture and biofire results; transitioned to Cefepime 2 g IV every 8 hours - Continue home inhaler therapies Follow daily CBC with manual differential, renal function panel Admission and Anticipated Discharge Date Admission Date: July 28, 2025 Subjective Ms. Persaud is a an 84-year-old female whose active medical conditions include moderate persistent asthma, sensorineural hearing loss, IgG deficiency, rheumatoid arthritis among other chronic medical conditions who presented to [facility] by BLS on 07/27 due to progressive chills, rigors, and malaise/fatigue that progressed overnight on 07/26. No acute overnight events; patient feels well this morning Review of Systems Review of Systems: Review of cardiovascular, pulmonary, constitutional, gastrointestinal, neurologic systems was unremarkable except for pertinent positive and negative findings described in the HPI above Physical Exam Physical Exam: General: Elderly female in no acute distress Vital Signs: Reviewed HEENT: Moist mucous membranes Pulmonary: Symmetric chest wall excursion without restriction; improved focal crackles present in the right basilar posterior lobe without egophony; remaining lung redmond are clear to auscultation with the rare occasional end expiratory wheeze Cardiovascular: Regular rate and rhythm with grade 2/6 systolic murmur best heard in the left second intercostal space parasternally; no rubs or gallops; occasional splitting of S1 with normal S2; bilateral radial and posterior tibial pulse 2+ without notable lower extremity edema Neurologic: Cranial nerves II to XII grossly intact with diminished hearing (geraldo jones was without their usual hearing aids at the time of my exam) no focal neurologic deficits noted on exam Results & Data Results & Data Vital Signs (Past 12 Hours) Vital Signs Temp Pulse Resp BP Pulse Ox O2 Del Method 07/29/25 07:21 36.6 C 73 16 132/73 94 Room Air 07/28/25 23:41 37.1 C 87 16 128/67 96 Room Air 07/28/25 20:30 Room Air PG Care Time/CCT Total # of Minutes Spent Total Time Spent with Patient: Total time spent is greater than 50% in coordination of care (as documented) at patient's floor/unit and/or counseling patient: Coding Level of Care Code 81035 SUB INP/OBS CARE 2/35MIN Diagnoses Pneumonia due to gram-negative bacteria J15.69 Community acquired pneumonia of left lower lobe of lung J18.9 Laterality: left Lung location: lower lobe of lung Neutrophilic leukocytosis D72.828 Immunocompromised state due to drug therapy D84.821 Malaise and fatigue R53.81; R53.83 Hypomagnesemia E83.42 (2) Community acquired pneumonia Laterality: left Lung location: lower lobe of lung Qualified Code(s): J18.9 - Pneumonia, unspecified organism
[2025-07-29 22:23] VITALS: RESP 16
[2025-07-30 07:15] LABS: Hematocrit (blood only) 36.0 % (37.0-47.0); Hemoglobin 12.2 g/dl (12.0-16.0); Immature Granulocytes # (auto) 0.03 K/uL (0.01-0.20); Immature Granulocytes % (auto) 0.7 %; Mean Corpuscular Hemoglobin 29.3 pg (25.0-34.0); Mean Corpuscular Volume 86.3 fL (80.0-100.0); Platelet Count 199 K/uL (130-400); RDW Standard Deviation 41.2 fL (36.4-46.3); Red Blood Count 4.17 M/uL (4.20-5.40); White Blood Count 4.44 K/ul (4.8-10.8)
[2025-07-30 07:42] LABS: Albumin Level 3.7 gm/dl (3.4-5.0); Anion Gap 7.0 (3-11); Blood Urea Nitrogen 15.0 mg/dl (6-23); Calcium 8.7 mg/dl (8.6-10.3); Carbon Dioxide 23.0 mmol/L (21-32); Chloride 106.0 mmol/L (98-107); Creatinine Clr Calc Pharmacy 63.4 ml/min; Glucose 98.0 mg/dl (70-99(Fasting)); Magnesium 2.2 mg/dl (1.7-2.4); Potassium 3.9 mmol/L (3.5-5.1); Sodium 136.0 mmol/L (136-145)
[2025-07-30 07:58] VITALS: BP 175/94; PULSE 70; TEMP 98.1; O2SAT 90
--- NOTE | 2025-08-07 07:03 | Discharge Summary ---
Discharge Summary Date of Service July 30, 2025 Principal Dx & Hospital Course #1 = Principal Diagnosis (1) Pneumonia due to gram-negative bacteria: (2) Community acquired pneumonia: (3) Neutrophilic leukocytosis: (4) Immunocompromised state due to drug therapy: (5) Malaise and fatigue: (6) Hypomagnesemia: Plan In summary this is an 84-year-old female who presents with concern for community-acquired pneumonia #CAP due to gram negative violette// Moderate persistent asthma // Immunosuppressed in the setting of biologic drug therapy for RA Patient presented with fever, tachypnea, focal crackles; PSI score 130 points with risk class IV; found to have leukocytosis in addition to procalcitonin 2.08; blood cultures with GNR growth in one aerobic and one anaerobic bottle, biofire with Enterobacterales PCR; patient remains without a productive cough, unable to obtain a respiratory sputum sample at this time; reassessment with PA and Lateral chest films on 07/28 with questionable retrocardiac pneumonia; Shorr score 1, low risk for MRSA pneumonia; patient at presentation met SIRS criteria however their clinical evaluation is not consistent with sepsis given the lack of clinical evidence of infection and improvement without the need for intervention that sepsis requires Discontinued ceftriaxone and azithromycin 07/28 due to blood culture and biofire results; transitioned to Cefepime 2 g IV every 8 hours per Pharmacy request; discharged on Levaquin for a total 10 day course Admission HPI Per Admitting Provider Ms. Persaud is a an 84-year-old female whose active medical conditions include moderate persistent asthma, sensorineural hearing loss, IgG deficiency, rheumatoid arthritis among other chronic medical conditions who presented to [facility] by BLS on 07/27 due to progressive chills, rigors, and malaise/fatigue that progressed overnight on 07/26. The patient denies any recent antibiotic courses, recent ill exposures. She has a chronic cough related to their asthma which has not recently worsened nor changed; as remained unproductive. She did recently have an influenza immuniz ation on 07/24 that was uncomplicated. She has not in the past 24 hours required increased use of any rescue inhalers. She further denies any palpitations, pleuritic chest pain, orthopnea, platypnea, lower extremity edema, chest pain, exertional dyspnea. Discharge Exam General: Elderly female in no acute distress Vital Signs: Reviewed HEENT: Moist mucous membranes Pulmonary: Symmetric chest wall excursion without restriction; improved focal crackles present in the right basilar posterior lobe without egophony; remaining lung redmond are clear to auscultation with the rare occasional end expiratory wheeze Cardiovascular: Regular rate and rhythm with grade 2/6 systolic murmur best heard in the left second intercostal space parasternally; no rubs or gallops; occasional splitting of S1 with normal S2; bilateral radial and posterior tibial pulse 2+ without notable lower extremity edema Neurologic: Cranial nerves II to XII grossly intact with diminished hearing (patient was without their usual hearing aids at the time of my exam) no focal neurologic deficits noted on exam Discharge Plan Discharge Items Patient Disposition: Home - Self-Care Reason For Visit: CAP IN AN IMMUNOCOMPROMISED PATIENT Discharge Diagnosis: CAP with bacteremia secondary to Providencia species Condition on Discharge: Good Activity: Resume your previous activity Non-emergency contact: Primary Care Provider Call non-emergency contact if: you have any medication questions, your symptoms worsen and you have a fever Follow-up/Referrals: Renetta Blancas DO [Primary Care Provider] - (ALL APPTS ARE SCHEDULED WITH PATIENT'S POA. PLEASE MAKE A HOSPITAL FOLLOW UP VISIT WITH PCP IN 7-10 DAYS.) Diet: Regular Fluids: 2000ml (8 cups) Addtl Attending Provider Instructions: You were admitted to [facility] for community-acquired pneumonia, found to have bacteremia secondary to Providencia species With respect to your community-acquired pneumonia, this was relatively uncomplicated; initially retreated with Rocephin and azithromycin through your IV, transitioned to cefepime for approximately 24 hours after blood cultures resulted with gram-negative rods concerning for possible Enterobacter species. Final speciation of your blood cultures revealed Providencia species, with stokes sensitivity to antibiotics. He will be discharged with an additional 2 days of levofloxacin 750 mg p.o. once daily. Thank you for choosing [facility] as your healthcare provider. Pending Studies at Discharge: No Stand-Alone Forms: My [facility] Medications and DC Order Prescriptions: Continued zoledronic fbkf-uqqqvwiy-tueik [Reclast] 5 mg/100 mL piggyback 1 ea IV .UD Patient Comments: 07/27- no fill history unable to verify Rx Instructions: No auth needed. Pt is scheduled on 10/20/23 at 2:00 pm. montelukast 10 mg tablet 10 mg PO DAILY Qty: 90 3RF omeprazole 20 mg capsule,delayed release(DR/EC) 20 mg PO QPM Qty: 90 3RF Rx Instructions: TAKE 1 CAPSULE ONCE DAILY ipratropium bromide 21 mcg (0.03 %) spray,non-aerosol 2 spray intranasal DAILY Qty: 90 3RF Rx Instructions: administer into each nostril losartan [Cozaar] 50 mg tablet 50 mg PO QAM Qty: 90 3RF fluticasone propion-salmeterol [Wixela Inhub] 500-50 mcg/dose blister with device 1 inh inhalation BID Qty: 180 2RF cetirizine 10 mg tablet 10 mg PO DAILY Patient Comments: 07/27- otc unable to verify albuterol sulfate 90 mcg/actuation HFA aerosol inhaler 2 puff inhalation Q4H PRN (Reason: shortness of breath or wheezing) Qty: 3 3RF vitamin A 2,400 mcg capsule 2,400 mcg PO DAILY Patient Comments: 07/27- otc unable to verify pkpxxkfkvzcj-Bq-lkiv-minerals 18-0.4 mg tablet 1 tab PO DAILY Patient Comments: 07/27- otc unable to verify omega 2-lbu-hnq-fish oil [Fish Oil] 1,200 (144-216) mg capsule 1 cap PO DAILY Patient Comments: 07/27- otc unable to verify glucosamine-chondroitin 900 mg tablet 2 mg PO DAILY Patient Comments: 07/27- otc unable to verify Spiriva Respimat 1.25 mcg/actuation mist 2 puff inhalation DAILY Qty: 3 3RF Fasenra 30 mg/mL syringe 30 mg subcut .COMPLEX Qty: 1 6RF Rx Instructions: Inject 30mg subcutaneously every 56 days as maintenance dose PA approved 07/22/24-09/20/25 [id number] simvastatin 20 mg tablet 20 mg PO QPM Qty: 90 3RF calcium carbonate-vitamin D3 [Calcium 500 + D] 500 mg(1,250mg) -200 unit tablet 2 tab PO QAM Patient Comments: 07/27- otc unable to verify mometasone [Nasonex 24hr Allergy] 50 mcg/actuation spray,non-aerosol 1 spray INTNAS BID Rx Instructions: administer into each nostril twice daily 90 day supply clotrimazole-betameth dip-zinc 1-0.05-20 % combo pack 0 pkg topical UD Patient Comments: 07/27- last filled 01/31 45 day supply Rx Instructions: apply CLOTRIMAZOLE/BETAMETHASONE CREAM twice daily: use ZINC OXIDE PASTE as needed/as directed topical Discharge Orders: Discharge Order (Routine); Ordered 07/30/25 Ordered By: Christopher Fountain Admission Data Admit Date/Time: 07/28/25 16:14 Attending Provider: Crhistopher Fountain Admit Provider: Christopher Fountain Primary Care Provider: Renetta Blancas Other Interventions: Discharge Summary Assessment (RN) Last Done: 07/30/25 10:27 Hospital Stay Data Consultations 07/27/25 09:46 ED Decision to Admit Stat Pending Results Patient Have Any Pending Studies at Discharge: No Discharge Instructions Given to Patient (Per Discharging Provider) You were admitted to [facility] for community-acquired pneumonia, found to have bacteremia secondary to Providencia species With respect to your community-acquired pneumonia, this was relatively uncomp licated; initially retreated with Rocephin and azithromycin through your IV, transitioned to cefepime for approximately 24 hours after blood cultures resulted with gram-negative rods concerning for possible Enterobacter species. Final speciation of your blood cultures revealed Providencia species, with stokes sensitivity to antibiotics. He will be discharged with an additional 2 days of levofloxacin 750 mg p.o. once daily. Thank you for choosing [facility] as your healthcare provider. Total Time Total Time Spent Total Time Spent (In Minutes): I personally spent 45 minutes in the coordination of this patient's discharge including bedside counseling, physical exam, medication reconciliation, and interpretation of laboratory and imaging results Coding Level of Care Code 84078 INP/OBS DISCH >30 MIN Diagnoses Pneumonia due to gram-negative bacteria J15.69 Community acquired pneumonia of left lower lobe of lung J18.9 Laterality: left Lung location: lower lobe of lung Neutrophilic leukocytosis D72.828 Immunocompromised state due to drug therapy D84.821 Malaise and fatigue R53.81; R53.83 Hypomagnesemia E83.42
== END 2025-07-30 13:02 | disposition home or self-care (01) | DRG 178 ==
LOC: ED 07:38 → 3E 07:38